=== PATIENT | male | born 1930 | race Caucasian/White ===

== ENCOUNTER 2017-02-22 09:08 | Day surgery (SDC) | payer MEDICARE, BC ==
[2017-02-22] MEDS ORDERED: ETOMIDATE 40 MG/20 ML VIAL IV ONE (10:38)
[2017-02-22] MEDS ORDERED: GLYCOPYRROLATE 0.2 MG/ML VIAL ONE (10:38)
== END 2017-02-22 11:40 | disposition home or self-care (01) ==
LOC: SDS 09:08 → GI 09:08 → SDS 11:40
PROVIDERS: ATTEND Internal Medicine Cardiovascular Disease
DX: I48.2 Chronic atrial fibrillation (principal); I10 Essential (primary) hypertension; I25.10 Atherosclerotic heart disease of native coronary artery without angina pectoris; E78.2 Mixed hyperlipidemia; Z79.899 Other long term (current) drug therapy
CPT/HCPCS: 1922; 93312; 93321; 93325

== ENCOUNTER 2017-03-24 10:42 | Inpatient (IN) | payer MEDICARE, BC ==
[2017-03-24 10:59] LABS: BASOPHILS 0.3 % (0.0-2.0); EOSINOPHILS 0.1 % (0.0-6.0); HEMATOCRIT 47.5 % (42.0-54.0); HEMOGLOBIN 16.3 g/dL (14.0-18.0); LYMPHOCYTES 22.9 % (20.0-40.0); LYMPHOCYTES# 1.4 X 10^3uL (0.8-3.8); MEAN CELL VOLUME 95.3 fL (80.0-100.0); MEAN CORPUS. HGB CONCENTRATION 34.3 g/dL (32.0-36.0); MEAN CORPUSCULAR HEMOGLOBIN 32.7 pg (29.0-35.0); MEAN PLATELET VOLUME 8.9 fL (7.4-10.4); MONOCYTES 12.6 % (2.0-10.0); MONOCYTES# 0.8 X 10^3uL (0.2-1.0); NEUTROPHILS 64.1 % (54.0-75.0); NEUTROPHILS# 4.1 X 10^3uL (2.6-6.7); PLATELET COUNT 124 X 10^3uL (130-440); RED BLOOD COUNT 4.98 X 10^6uL (4.20-6.10); RED CELL DISTRIBUTION WIDTH 12.3 % (11.5-14.5); WHITE BLOOD COUNT 6.3 X 10^3uL (3.9-10.7)
[2017-03-24 11:09] LABS: BLOOD UREA NITROGEN 11 mg/dL (9-20); CALCIUM 8.6 mg/dL (8.4-10.2); CHLORIDE 102 mmol/L (98-107); GLUCOSE 103 mg/dL (70-100); POTASSIUM 4.1 mmol/L (3.5-5.1); SODIUM 138 mmol/L (137-145)
--- NOTE | 2017-03-24 11:19 | CT REPORT ---
HISTORY: Low back pain. Fall. COMPARISON: 11/03/2016 TECHNIQUE: This examination was performed using automated exposure control, adjustment of mA or kV according to patient size, and/or use of iterative reconstruction technique. Axial thin section images were obtai gina from L1 through S1 levels, with sagittal and coronal reformations. FINDINGS: Transitional anatomy is present. S1 is partially lumbarized with a rudimentary disc at S1-S2. Chronic superior endplate compression fracture at T12 with approximately 50% ventral height loss and no retropulsion. The fracture has undergone interval healing since prior examination. There is diffus e sclerosis throughout the vertebral body. Subtle superior end plate deformities at L1, L2 and L3 appear similar to the prior study. Multilevel degenerative disc height loss most notable at L5-S1. Associated discogenic endplate sclero sis. The left iliac bone is heterogeneous in mineralization appears mildly expanded suggesting Paget disea se. IMPRESSION: 1. Chronic T12 superior endplate compression fracture. The presence of diffuse sclerosis in the T12 v ertebral body is favored to reflect fracture healing although a sclerotic tumor could have similar fe atures. Attention on follow-up recommended. 2. No evidence of acute lumbar fracture. MRI would be more sensitive for subtle nondisplaced compress ion fracture. 3. 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 Final Electronic Signature: This report was electronically signed by Mal Subramanian MD on 03/24/2017 11:17 AM. daya /
[2017-03-24 11:21] LABS: TROPONIN I < 0.012 ng/mL (0.00-0.034)
[2017-03-24] MEDS ORDERED: HOME MEDICATION LIST NEEDED 1 EA EACH MC ONE (11:47)
--- NOTE | 2017-03-24 12:45 | ER PHYSICIAN DOCUMENTATION ---
Physician Documentation [facility] Name:Deni Hagen Age:87 yrs Sex:Male :1930 Arrival Date:03/24/2017 Time:10:36 Bed4 Private MD:Carlos Alberto Guerra ED, [place] Disposition: 03/24/17 11:53 Admit ordered for Carlos Alberto Guerra. Preliminary diagnosis are Back Injury, Atrial Fibrillation. - Bed requested for Medical/Surgical. - Condition is Serious. - Problem is new. - Symptoms are unchanged. 23 HR OBS No HPI: 03/24 10:52 This 87 yrs old Male presents to ER via EMS with complaints of Back Injury. sc 10:52 The patient presents with pain that is acute, and an injury. The symptoms are located sc in the low back. Onset: The symptoms/episode began/occurred at 06:00. The pain does not radiate. Associated signs and symptoms: Pertinent positives: none. The problem was sustained at home, from a chronic condition, during a fall, frequent falls over past six months, previously injured low back with compression fx. Historical: - Allergies: No known drug Allergies; - Home Meds: 1. Metoprolol Tartrate Oral 2. Toviaz oral 3. Levothroid Oral 4. aspirin 81 mg oral tab 5. Ferrous Sulfate Oral 6. Lipitor Oral 7. finasteride oral 8. tamsulosin oral - PMHx: CAD; HYPERTENSION; hyperlipidemia; ATRIAL FIB; - PSHx: stent; - Tetanus: unknown. - Ebola Screening: : Patient denies exposure to infectious person. Patient denies travel to an Ebola-affected area in the 21 days before illness onset. . - Social history: Smoking status: unknown if patient ever smoked tobacco. ROS: 10:54 Constitutional: Negative for fever, chills, and weight loss. sc Eyes: Negative for injury, pain, redness, and discharge. Neck: Negative for injury, pain, and swelling. Cardiovascular: Negative for chest pain, palpitations, and edema. Respiratory: Negative for shortness of breath, cough, wheezing, and pleuritic chest pain. Abdomen/GI: Negative for abdominal pain, nausea, vomiting, diarrhea, and constipation. MS/Extremity: Negative for injury and deformity. Skin: Negative for injury, rash, and discoloration. 10:54 Neuro: Negative for headache, weakness, numbness, tingling, and seizure. sc 10:54 Back: Positive for injury or acute deformity. Exam: Constitutional: This is a well developed, well nourished patient who is awake, alert, and in no acute distress. Head/Face: Normocephalic, atraumatic. Eyes: Pupils equal round and reactive to light, extra-ocular motions intact. Lids and lashes normal. Conjunctiva and sclera are non-icteric and not injected. Cornea within normal limits. Periorbital areas with no swelling, redness, or edema. Neck: Trachea midline, no thyromegaly or masses palpated, and no cervical lymphadenopathy. Supple, full range of motion without nuchal rigidity, or vertebral point tenderness. No meningismus. Chest/axilla: Normal chest wall appearance and motion. Nontender with no deformity. No lesions are appreciated. Cardiovascular: Regular rate and rhythm with a normal S1 and S2. No gallops, murmurs, or rubs. Normal PMI, no JVD. No pulse deficits. Respiratory: Lungs have equal breath sounds bilaterally, clear to auscultation and percussion. No rales, rhonchi or wheezes noted. No increased work of breathing, no retractions or nasal flaring. Abdomen/GI: Soft, non-tender, with normal bowel sounds. No distension or tympany. No guarding or rebound. No evidence of tenderness throughout. 10:54 Skin: Warm, dry with normal turgor. Normal color with no rashes, no lesions, and no sc evidence of cellulitis. 10:54 Back: pain, that is moderate, ROM is painful, normal spinal alignment noted, CVA tenderness, is absent, vertebral tenderness, is not appreciated, muscle spasm, is not present, Straight leg raises: pain bilaterally. Vital Signs: 10:38 BP 166 / 75 LA Supine (auto/reg); Pulse 48 RA; Resp 18 S; Temp 98.1(O); Pulse Ox 90% on em3 R/A; Weight 61.23 kg (R); Height 5 ft. 11 in. (180.34 cm) (R); Pain 0/10; 11:54 Pulse 51 MON; Resp 17; Pulse Ox 94% ; st 11:58 BP 163 / 79; st 10:38 Body Mass Index 18.83 (61.23 kg, 180.34 cm) em3 MDM: 10:47 Patient medically screened. ok 10:55 Differential diagnosis: Fracture ruptured disc. Data reviewed: vital signs, nurses ok notes, radiologic studies, and as a result, I will admit patient. Counseling: I had a detailed discussion with the patient and/or guardian regarding: the historical points, exam findings, and any diagnostic results supporting the discharge/admit diagnosis, lab results, radiology results, the need for further work-up and treatment in the hospital. 11:23 ECG:. ok 11:25 EKG attached [facility] 03/24 11:22 Order name: BASIC METABOLIC PANEL [facility] 03/24 11:23 Interpretation: Normal. ok 03/24 11:22 Order name: TROPONIN I [facility] 03/24 11:23 Interpretation: Normal. ok 03/24 11:24 Order name: CBC AUTO DIF, MDIF/RMOR IF IND [facility] 03/24 14:48 Order name: UA W/O MICRO - DENICE, CUL IF IND [facility] 03/24 11:21 Order name: CAT SCAN; LUMBAR W/O CON [id number]; Complete Time: 11:23 [facility] 03/24 11:22 Interpretation: Abnormal. ok 03/24 10:47 Order name: Call For Old Ekg; Complete Time: 10:52 ok 03/24 10:47 Order name: 12-lead EKG; Complete Time: 11:11 ok 03/24 10:47 Order name: Continuous Cardiac Monitoring; Complete Time: 10:52 ok 03/24 10:47 Order name: I & O; Complete Time: 10:52 ok 03/24 10:47 Order name: NPO; Complete Time: 10:52 ok 03/24 10:47 Order name: Pulse Ox Continuous; Complete Time: 10:52 ok 03/24 11:52 Order name: Urine Dip; Complete Time: 12:23 ok EC:23 Rate is 49 beats/min. Rhythm is irregularly irregular, A fib. QRS [place] is Normal. QRS sc interval is normal. QT interval is normal. No Q waves. No ST changes noted. Clinical impression: Atrial Fibrillation. Interpreted by me. Reviewed by me. Dispensed Medications: 11:56 Drug: NS 0.9% 500 ml; Route: IV; Rate: bolus; Site: right antecubital; st 12:44 Follow up: IV Status: Infusion continued upon admission Point of Care Testing: Urine Dip: 12:17 pH: 7.0; ; Specific [place]: 1.020; Ketones: Negative; Glucose: Negative; Protein: em3 Negative; Leukocytes: Negative; Nitrite: Negative ; Blood: Non Hemolyzed Trace; Bilirubin: Negative ; Urobilinogen: Normal Signatures: Laney Meza RN RN Fatmata Ramey RN RN sc1 Moustapha Jaquez MD MD ok
--- NOTE | 2017-03-24 12:45 | ER NURSING DOCUMENTATION ---
Nurse's Notes [facility] Name:Deni Hagen Age:87 yrs Sex:Male :1930 Arrival Date:03/24/2017 Time:10:36 Bed4 Private MD:Carlos Alberto Guerra Diagnosis:Back Injury;Atrial Fibrillation Presentation: 03/24 10:40 Acuity: SILVIA 3 st 10:40 Presenting complaint: Patient states: at 6 this AM pt fell while walking from the restroom. (pt does not remember the event. Ilir Gonzalez's staff helped him up and gave him some ensure but he continued to have back pain so they called 911. Transition of care: Christopher Shah. Care prior to arrival: IV initiated. 10:40 Method Of Arrival: EMS: 410 st 11:59 Care prior to arrival: Glucose check. 108. st Triage Assessment: 10:45 General: Appears uncomfortable, Behavior is cooperative. Pain: Complains of pain in st lumbar area Pain currently is 0 out of 10 on a pain scale. Pain began 4 hours ago Aggravated by movement. pt has no pain unless he moves. Neuro: Level of Consciousness is awake, alert, Oriented to person, place, time, Jacquard Lace Weaver are equal bilaterally Moves all extremities. Reports back pain with any movment.. Musculoskeletal: Circulation, motion, and sensation intact no tenderness noted with palpatio. Historical: - Allergies: No known drug Allergies; - Home Meds: 1. Metoprolol Tartrate Oral 2. Toviaz oral 3. Levothroid Oral 4. aspirin 81 mg oral tab 5. Ferrous Sulfate Oral 6. Lipitor Oral 7. finasteride oral 8. tamsulosin oral - PMHx: CAD; HYPERTENSION; hyperlipidemia; ATRIAL FIB; - PSHx: stent; - Tetanus: unknown. - Ebola Screening: : Patient denies exposure to infectious person. Patient denies travel to an Ebola-affected area in the 21 days before illness onset. . - Social history: Smoking status: unknown if patient ever smoked tobacco. Screenin:47 Infectious Disease Risk None. Abuse screen: no reasons for suspicions noted. st Nutritional screening: No deficits noted. Assessment: 11:22 General: pt resting quietly. pt has no pain at this time.. st Vital Signs: 10:38 BP 166 / 75 LA Supine (auto/reg); Pulse 48 RA; Resp 18 S; Temp 98.1(O); Pulse Ox 90% on em3 R/A; Weight 61.23 kg (R); Height 5 ft. 11 in. (180.34 cm) (R); Pain 0/10; 11:54 Pulse 51 MON; Resp 17; Pulse Ox 94% ; st 11:58 BP 163 / 79; st 10:38 Body Mass Index 18.83 (61.23 kg, 180.34 cm) em3 ED Course: 10:36 Patient arrived in ED. em3 10:38 Carlos Alberto Guerra MD is Private Physician. em3 10:40 Laney Meza RN is Primary Nurse. st 10:[address] 10:40 Valuables Remains with patient Patient has correct armband on for positive em3 identification. Bed in low position. Call light in reach. Side rails up X2. 10:47 Moustapha Jaquez MD is Attending Physician. sc 10:51 awake overnight monitor on. Pulse ox on. NIBP on. st 10:[address] hz 11:02 Patient moved back from CT. hz 11:04 EKG done per protocol. Performed by ED Staff. Shown to ED physician. st 11:[address] 11:25 EKG attached sc1 11:53 Carlos Alberto Guerra MD is Admitting Physician. sc 12:[address] Administered Medications: 11:56 Drug: NS 0.9% 500 ml; Route: IV; Rate: bolus; Site: right antecubital; st 12:44 Follow up: IV Status: Infusion continued upon admission Point of Care Testing: Urine Dip: 12:17 pH: 7.0; ; Specific [place]: 1.020; Ketones: Negative; Glucose: Negative; Protein: em3 Negative; Leukocytes: Negative; Nitrite: Negative ; Blood: Non Hemolyzed Trace; Bilirubin: Negative ; Urobilinogen: Normal Outcome: 11:53 Decision to Admit by Provider. ca 12:43 Admitted to Med/surg accompanied by nurse. st 12:43 Condition: stable 12:43 Report given to Nic 12:43 Instructed on need to admit 12:44 Patient [address] the ED[address] st Signatures: Laney Meza RN RN Fatmata Ramey RN RN ca1 Moustapha Jaquez MD MD sc Pavan hSort em3 Araceli Lewis
[2017-03-24] MEDS ORDERED: ENOXAPARIN SODIUM 100 MG/ML SYR SUBCUT SCH (13:00)
[2017-03-24] MEDS: LISINOPRIL 20 MG TABLET PO SCH (14:09)
[2017-03-24] MEDS: ENOXAPARIN SODIUM 60 MG/0.6 ML SYR SUBCUT SCH (14:13)
[2017-03-24] MEDS ORDERED: ENOXAPARIN SODIUM 60 MG/0.6 ML SYR SUBCUT ONE (14:21)
[2017-03-24 14:47] LABS: URINE APPEARANCE CLEAR; URINE BILIRUBIN NEGATIVE (NEGATIVE); URINE BLOOD TRACE (NEGATIVE); URINE COLOR YELLOW; URINE GLUCOSE NORMAL (NEGATIVE); URINE KETONE NEGATIVE (NEGATIVE); URINE LEUKOCYTE ESTERASE NEGATIVE (NEGATIVE); URINE NITRITE NEGATIVE (NEGATIVE); URINE PROTEIN NEGATIVE (NEG - TRACE); URINE SPECIFIC GRAVITY 1.015 (0.001-1.035); URINE UROBILINOGEN 0.2mg/dL (Normal) (NEG-1mg/dL)
--- NOTE | 2017-03-24 16:10 | HISTORY & PHYSICAL ---
DATE OF ADMISSION: 03/24/17 CHIEF COMPLAINT: Status post fall. HISTORY OF PRESENT ILLNESS: This is an 87-year-old male who had some falls 6 months ago and again about 3 months ago. This morning, the patient had another fall, sitting down. No head or neck injury. Apparently he was scheduled for placement of a Watchman closure device, and he was n.p.o. since about 12 noon yesterday. He has a poor p.o. fluid intake normally and only eats lunch, no breakfast or dinner normally. Apparently this morning he felt quite dizzy and lightheaded and had an unwitnessed fall. He is complaining of low back pain. Lumbar spine CT scan showed an old compression fracture at T12, but no obvious new acute compression fracture or other injuries. ALLERGIES: None. MEDICATIONS Levothyroxine 50 mcg p.o. q.day. Metoprolol ER 25 mg p.o. q.day. Finasteride 5 mg p.o. q.day. Toviaz ER 8 mg p.o. q.day. Atorvastatin 20 mg p.o. q.h.s. Tamsulosin 0.4 mg p.o. q.day. Hydrocodone/APAP 5/325 mg one tablet p.o. q.6h p.r.n. pain. Calcium 600 mg with vitamin D 400 IU p.o. b.i.d. Tylenol p.r.n. Aspirin 81 mg p.o. q.day. Ferrous sulfate 325 mg p.o. q.day. Nitroglycerin 0.4 mg sublingual q.5 minutes p.r.n. chest pain. Coumadin has been discontinued in the past. PAST MEDICAL HISTORY 1. Atrial fibrillation followed by hydrant setter Dr. Miner and previously on Coumadin but currently on aspirin. He is scheduled for a Watchman closure device today but this will need to be rescheduled for a future date. 2. Hyperlipidemia. 3. Hypothyroidism. 4. B12 compression fracture in 2015. 5. Hematuria. 6. Urinary retention. 7. BPH. 8. CAD status post angioplasty and stent of the LAD followed by Dr. Miner. 9. Osteoporosis. 10. Iron deficiency anemia. 11. Gait instability with fall risk. 12. Rib fracture 09/2016. 13. Right hand metacarpal fracture in 11/2016. 14. Hematoma of the scrotum 09/2016. 15. Hypertension. 16. Cataract surgery, bilateral, in 2009 and laser surgery of the left eye in 2016. SOCIAL HISTORY: . No alcohol. No smoking. FAMILY HISTORY: Unremarkable. REVIEW OF SYSTEMS: No chest pain, chest tightness, palpitations or angina symptoms. No lung, kidney, liver, diabetes, seizures, peptic ulcer disease or skin allergy disorder. No urinary problems. PREVENTATIVE HEALTH: Gets annual flu shot. PHYSICAL EXAMINATION VITAL SIGNS: Blood pressure 166/75, pulse 48, respiratory rate 18, temperature 98.0, pulse oximetry 90% on room air. GENERAL: Well-developed, well-nourished elderly male, no acute distress, alert and oriented times 3. HEENT: Head atraumatic, normocephalic. EOMI. Pupils equally round. Normal conjunctivae. No coryza. Pharynx not injected. NECK: No adenopathy, thyromegaly or bruits. Supple. CHEST: Clear. No rales, rhonchi or wheezes. Good breath sounds and symmetry throughout. COR: Irregular irregular rhythm, bradycardic. No obvious murmurs, rubs or clicks. No jugular venous distention. ABDOMEN: Soft, nontender. No hepatosplenomegaly. No masses. No bruits. Bowel sounds present. LOWER EXTREMITIES: No edema. Posterior tibialis pulses present. NEUROLOGIC: Cranial nerves 2-12 intact. Motor 5/5 in the upper and lower extremities. Sensory intact in upper and lower extremities. DTRS 1+ on patellar reflexes. Cerebellar function: Normal finger to nose. BACK: No lumbar spine, SI joint or tenderness. No obvious muscle tenderness. Pain occurs primarily when the patient does any kind of movement with the back. The patient prefers to lie down and at any time tries to sit up causes exquisite pain. CT SCAN: Showed an old T12 compression fracture but no acute injury. LABORATORY STUDIES: WBC 6.3, H&H 16.3/47.5, platelets 124,000. Sodium 138, potassium 4.1, chloride 100, CO2 25, BUN 11, creatinine 0.8, glucose 103, calcium 8.6. Troponin less than 0.012. Urinalysis pending. ASSESSMENT 1. Status post fall. 2. Intractable pain with low back pain secondary to number 1 most likely etiology for the fall would be dehydration from being n.p.o. since 12 noon yesterday. In addition, he only has fair fluid intake. 3. Bradycardia, chronic, presumably due to metoprolol. Will need to consider holding metoprolol if bradycardia remains profound and persistent. 4. Atrial fibrillation, currently on aspirin. Not a good candidate for warfarin due to fall risk and was to have a Watchman closure procedure done today, and this will need to be rescheduled. 5. CAD. 6. Hypertension. 7. Hyperlipidemia. PLAN 1. Physical therapy and occupational therapy. 2. Up in chair t.i.d. and ambulate t.i.d. 3. Will need to reschedule Watchman closure procedure. 4. Lovenox while in the hospital. 5. Will need to consider stopping metoprolol if the patient has profound bradycardic. ADDENDUM: Since the patient has been here in the hospital, heart rates have been in the 30-40 range with blood pressure in the 180s. PLAN 1. Start Lisinopril 20 mg p.o. q.day. 2. Hold metoprolol ER 25 mg p.o. q.day. 3. Cardiology consultation. Copy to Dr. Kristofer ARROYO
[2017-03-24] MEDS: traMADol HCL 50 MG TABLET PO PRN (17:37)
[2017-03-24] MEDS: CARBAMIDE PEROXIDE 6.5% OTIC 75 DROP/5 ML BTL EACH EAR SCH (18:43)
[2017-03-24] MEDS ORDERED: CARBAMIDE PEROXIDE 6.5% OTIC 75 DROP/5 ML BTL ONE (18:53)
[2017-03-24] MEDS: TAMSULOSIN HCL 0.4 MG CAPSULE PO SCH (20:55)
[2017-03-24] MEDS: ATORVASTATIN CALCIUM 10 MG TABLET PO SCH (20:55)
[2017-03-24] MEDS: FINASTERIDE 5 MG TABLET PO SCH (20:55)
[2017-03-24] MEDS: CALCIUM/VIT D 600 MG/400 IU 1 TAB TABLET PO SCH (20:55)
[2017-03-25] MEDS: LEVOTHYROXINE 50 MCG TABLET PO SCH (06:05)
[2017-03-25] MEDS: traMADol HCL 50 MG TABLET PO PRN ×2 (08:10→22:33)
[2017-03-25] MEDS ORDERED: ENOXAPARIN SODIUM 60 MG/0.6 ML SYR SUBCUT SCH (09:00)
--- NOTE | 2017-03-25 09:03 | PROGRESS NOTE: IM SOAP ---
IM: PN Subjective Interval history: Bilat otalgia related to bilat cerumen impaction. Nursing on working to get ears flushed. Persistent severe LBP with any movement. Unable to stand up or ambulate yet. No CP, SOB, dizziness. Metoprolol was held and pt started on lisinopril yesterday due to HR 30-40, BP 180/systolic. IM: PN Objective Exam - I&O/Vital Signs I&O: Intake & Output 03/24/17 03/25/17 03/25/17 21:59 05:59 13:59 Intake Total 220 Output Total 650 100 Balance -430 -100 Weight 62.5 kg Intake: Oral 220 Output: Urine 650 100 Other: Urine Appearance Clear Clear Urine Color Straw Yellow Voiding Method Urinal Urinal # Voids 1 Vital Signs: Last Vital Signs Temp 37.0 C 03/25/17 07:00 Pulse 54 L 03/25/17 07:00 Resp 20 03/25/17 07:00 BP 152/61 03/25/17 07:00 Pulse Ox 95 03/25/17 07:00 Oxygen Flow Rate 1 Oxygen Delivery Method Nasal Cannula - Respiratory Respiratory exam: Present: clear - Cardiovascular Cardiovascular exam: Present: irregular rhythm. Absent: systolic murmur - GI/Abdominal GI/Abdominal exam: Present: soft. Absent: tenderness - Extremities Exam Extremities exam: Absent: calf tenderness, edema - Back Exam Back exam: Present: normal inspection (but minor movement of back caused severe pain). Absent: muscle spasm, paraspinal tenderness - Lab Labs: Laboratory Last Values WBC 6.3 X 10^3uL (3.9-10.7) 03/24/17 10:30 RBC 4.98 X 10^6uL (4.20-6.10) 03/24/17 10:30 Hgb 16.3 g/dL (14.0-18.0) 03/24/17 10:30 Hct 47.5 % (42.0-54.0) 03/24/17 10:30 MCV 95.3 fL (80.0-100.0) 03/24/17 10:30 MCH 32.7 pg (29.0-35.0) 03/24/17 10:30 MCHC 34.3 g/dL (32.0-36.0) 03/24/17 10:30 RDW 12.3 % (11.5-14.5) 03/24/17 10:30 Plt Count 124 X 10^3uL (130-440) L 03/24/17 10:30 MPV 8.9 fL (7.4-10.4) 03/24/17 10:30 Neutrophils % 64.1 % (54.0-75.0) 03/24/17 10:30 Lymphocytes % 22.9 % (20.0-40.0) 03/24/17 10:30 Eosinophils % 0.1 % (0.0-6.0) 03/24/17 10:30 Basophils % 0.3 % (0.0-2.0) 03/24/17 10:30 Neutrophils # 4.1 X 10^3uL (2.6-6.7) 03/24/17 10:30 Lymphocytes # 1.4 X 10^3uL (0.8-3.8) 03/24/17 10:30 Monocytes 12.6 % (2.0-10.0) H 03/24/17 10:30 Monocytes # 0.8 X 10^3uL (0.2-1.0) 03/24/17 10:30 Eosinophils # 0.0 X 10^3uL (0.0-0.4) 03/24/17 10:30 Basophils # 0.0 X 10^3uL (0.0-0.1) 03/24/17 10:30 Sodium 138 mmol/L (137-145) 03/24/17 10:30 Potassium 4.1 mmol/L (3.5-5.1) 03/24/17 10:30 Chloride 102 mmol/L (98-107) 03/24/17 10:30 Carbon Dioxide 25 mmol/L (22-30) 03/24/17 10:30 BUN 11 mg/dL (9-20) 03/24/17 10:30 Creatinine 0.8 mg/dL (0.7-1.3) 03/24/17 10:30 GFR Calculation Not Reportable 03/24/17 10:30 Glucose 103 mg/dL (70-100) H 03/24/17 10:30 Calcium 8.6 mg/dL (8.4-10.2) 03/24/17 10:30 Troponin I < 0.012 ng/mL (0.00-0.034) 03/24/17 10:30 Urine Color Yellow 03/24/17 13:30 Urine Appearance Clear 03/24/17 13:30 Urine pH 7.0 (5-7) 03/24/17 13:30 Ur Specific [place] 1.015 (0.001-1.035) 03/24/17 13:30 Urine Protein Negative (NEG - TRACE) 03/24/17 13:30 Urine Ketones Negative (NEGATIVE) 03/24/17 13:30 Urine Blood Trace (NEGATIVE) A 03/24/17 13:30 Urine Nitrate Negative (NEGATIVE) 03/24/17 13:30 Urine Bilirubin Negative (NEGATIVE) 03/24/17 13:30 Urine Urobilinogen 0.2mg/dl (normal) (NEG-1mg/dL) 03/24/17 13:30 Ur Leukocyte Esterase Negative (NEGATIVE) 03/24/17 13:30 Urine Glucose Normal (NEGATIVE) 03/24/17 13:30 Assessment and Plan - Date of Encounter Date of Encounter: 03/25/17 (1) Fall Status: Acute Current Visit: Yes (2) Intractable pain Status: Acute Current Visit: Yes (3) Low back pain Status: Acute Assessment and plan: PT/OT Tramadol Current Visit: Yes (4) Bradycardia Status: Acute Assessment and plan: Improved to HR 50 when metoprolol stopped Cardiology consult Current Visit: Yes (5) HTN (hypertension) Status: Acute Assessment and plan: Switched from metoprolol to lisinopril Current Visit: Yes (6) Hyperlipidemia Status: Chronic Current Visit: Yes (7) Atrial fibrillation Status: Chronic Assessment and plan: Reschedule Watchman procedure Currently on ASA and inpatient Lovenox Current Visit: No (8) Coronary artery disease Status: Chronic Current Visit: No - Time Spent With Patient Total time spent with greater than 50% in coordination of care (as documented) at patient's floor/unit and/or counseling patient: Quality Questions - VTE Prophylaxis Assessment VTE Present on Admission?: No Patient at risk for venous thromboembolism?: Yes VTE Risk Level: High Risk Pharmaceutical VTE prophylaxis contraindication reason: N/A- VTE prophylaxsis ordered Mechanical VTE prophylaxis contraindication reason: N/A- VTE prophylaxsis ordered (7) Atrial fibrillation Qualifiers:
[2017-03-25] MEDS: CALCIUM/VIT D 600 MG/400 IU 1 TAB TABLET PO SCH ×2 (10:31→22:17)
[2017-03-25] MEDS: ACETAMINOPHEN 325 MG TABLET PO PRN ×2 (10:32→16:49)
[2017-03-25] MEDS: FERROUS SULFATE 325 MG TABLET PO SCH (10:32)
[2017-03-25] MEDS: CARBAMIDE PEROXIDE 6.5% OTIC 75 DROP/5 ML BTL EACH EAR SCH (10:32)
[2017-03-25] MEDS: LISINOPRIL 20 MG TABLET PO SCH (10:33)
[2017-03-25] MEDS: metoprolol SUCC ER 25 MG TABLET PO SCH (10:33)
[2017-03-25] MEDS: FESOTERODINE FUMARATE 8 MG PO SCH (10:34)
[2017-03-25] MEDS: ENOXAPARIN SODIUM 60 MG/0.6 ML SYR SUBCUT SCH (10:34)
[2017-03-25] MEDS: ATORVASTATIN CALCIUM 10 MG TABLET PO SCH (22:17)
[2017-03-25] MEDS: FINASTERIDE 5 MG TABLET PO SCH (22:18)
[2017-03-25] MEDS: TAMSULOSIN HCL 0.4 MG CAPSULE PO SCH (22:18)
[2017-03-26] MEDS: LEVOTHYROXINE 50 MCG TABLET PO SCH (06:31)
[2017-03-26] MEDS: ACETAMINOPHEN 325 MG TABLET PO PRN ×2 (06:32→20:30)
[2017-03-26] MEDS ORDERED: MAGNESIUM HYDROXIDE 30 ML UDC PO SCH (06:41)
[2017-03-26] MEDS: LISINOPRIL 20 MG TABLET PO SCH ×2 (08:23→14:29)
[2017-03-26] MEDS: FERROUS SULFATE 325 MG TABLET PO SCH (08:23)
[2017-03-26] MEDS: CALCIUM/VIT D 600 MG/400 IU 1 TAB TABLET PO SCH ×2 (08:24→20:06)
[2017-03-26] MEDS: FESOTERODINE FUMARATE 8 MG PO SCH (08:25)
[2017-03-26] MEDS: ENOXAPARIN SODIUM 60 MG/0.6 ML SYR SUBCUT SCH (08:25)
[2017-03-26] MEDS: metoprolol SUCC ER 25 MG TABLET PO SCH (08:26)
[2017-03-26] MEDS: CARBAMIDE PEROXIDE 6.5% OTIC 75 DROP/5 ML BTL EACH EAR SCH (09:10)
--- NOTE | 2017-03-26 12:43 | PROGRESS NOTE: IM SOAP ---
IM: PN Subjective Interval history: Bilat otalgia related to bilat cerumen impaction. Nursing on working to get ears flushed. Persistent severe LBP with any movement. Ambulated to window with walker and assist. No CP, SOB, dizziness. Metoprolol was held and pt started on lisinopril yesterday due to HR 30-40, BP 180/systolic. Will need to consider SSS and need for pacemaker. IM: PN Objective Exam - I&O/Vital Signs I&O: Intake & Output 03/25/17 03/26/17 03/26/17 21:59 05:59 13:59 Intake Total 990 100 Output Total 100 175 Balance 890 -75 Weight 64.5 kg Intake: Oral 990 100 Output: Urine 100 175 Other: Urine Appearance Clear Clear Clear Urine Color Yellow Yellow Yellow Voiding Method Urinal Urinal Incontinent # Voids 1 1 Vital Signs: Last Vital Signs Temp 35.9 C L 03/26/17 11:00 Pulse 43 L 03/26/17 11:00 Resp 20 03/26/17 11:00 BP 98/47 03/26/17 11:00 Pulse Ox 92 03/26/17 11:00 Oxygen Flow Rate 0.5 Oxygen Delivery Method Nasal Cannula - Respiratory Respiratory exam: Present: clear - Cardiovascular Cardiovascular exam: Present: irregular rhythm. Absent: systolic murmur - GI/Abdominal GI/Abdominal exam: Present: soft. Absent: tenderness - Extremities Exam Extremities exam: Absent: calf tenderness, edema - Back Exam Back exam: Present: normal inspection (but minor movement of back caused severe pain). Absent: muscle spasm, paraspinal tenderness - Lab Labs: Laboratory Last Values WBC 6.3 X 10^3uL (3.9-10.7) 03/24/17 10:30 RBC 4.98 X 10^6uL (4.20-6.10) 03/24/17 10:30 Hgb 16.3 g/dL (14.0-18.0) 03/24/17 10:30 Hct 47.5 % (42.0-54.0) 03/24/17 10:30 MCV 95.3 fL (80.0-100.0) 03/24/17 10:30 MCH 32.7 pg (29.0-35.0) 03/24/17 10:30 MCHC 34.3 g/dL (32.0-36.0) 03/24/17 10:30 RDW 12.3 % (11.5-14.5) 03/24/17 10:30 Plt Count 124 X 10^3uL (130-440) L 03/24/17 10:30 MPV 8.9 fL (7.4-10.4) 03/24/17 10:30 Neutrophils % 64.1 % (54.0-75.0) 03/24/17 10:30 Lymphocytes % 22.9 % (20.0-40.0) 03/24/17 10:30 Eosinophils % 0.1 % (0.0-6.0) 03/24/17 10:30 Basophils % 0.3 % (0.0-2.0) 03/24/17 10:30 Neutrophils # 4.1 X 10^3uL (2.6-6.7) 03/24/17 10:30 Lymphocytes # 1.4 X 10^3uL (0.8-3.8) 03/24/17 10:30 Monocytes 12.6 % (2.0-10.0) H 03/24/17 10:30 Monocytes # 0.8 X 10^3uL (0.2-1.0) 03/24/17 10:30 Eosinophils # 0.0 X 10^3uL (0.0-0.4) 03/24/17 10:30 Basophils # 0.0 X 10^3uL (0.0-0.1) 03/24/17 10:30 Sodium 138 mmol/L (137-145) 03/24/17 10:30 Potassium 4.1 mmol/L (3.5-5.1) 03/24/17 10:30 Chloride 102 mmol/L (98-107) 03/24/17 10:30 Carbon Dioxide 25 mmol/L (22-30) 03/24/17 10:30 BUN 11 mg/dL (9-20) 03/24/17 10:30 Creatinine 0.8 mg/dL (0.7-1.3) 03/24/17 10:30 GFR Calculation Not Reportable 03/24/17 10:30 Glucose 103 mg/dL (70-100) H 03/24/17 10:30 Calcium 8.6 mg/dL (8.4-10.2) 03/24/17 10:30 Troponin I < 0.012 ng/mL (0.00-0.034) 03/24/17 10:30 Urine Color Yellow 03/24/17 13:30 Urine Appearance Clear 03/24/17 13:30 Urine pH 7.0 (5-7) 03/24/17 13:30 Ur Specific [place] 1.015 (0.001-1.035) 03/24/17 13:30 Urine Protein Negative (NEG - TRACE) 03/24/17 13:30 Urine Ketones Negative (NEGATIVE) 03/24/17 13:30 Urine Blood Trace (NEGATIVE) A 03/24/17 13:30 Urine Nitrate Negative (NEGATIVE) 03/24/17 13:30 Urine Bilirubin Negative (NEGATIVE) 03/24/17 13:30 Urine Urobilinogen 0.2mg/dl (normal) (NEG-1mg/dL) 03/24/17 13:30 Ur Leukocyte Esterase Negative (NEGATIVE) 03/24/17 13:30 Urine Glucose Normal (NEGATIVE) 03/24/17 13:30 Assessment and Plan - Date of Encounter Date of Encounter: 03/26/17 (1) Fall Status: Acute Current Visit: Yes (2) Intractable pain Status: Acute Current Visit: Yes (3) Low back pain Status: Acute Assessment and plan: PT/OT Tramadol Ambulation improving Current Visit: Yes (4) Bradycardia Status: Acute Assessment and plan: Improved to HR 50 when metoprolol stopped Cardiology consult Consider pacemaker for SSS Current Visit: Yes (5) HTN (hypertension) Status: Acute Assessment and plan: Switched from metoprolol to lisinopril BP a bit low today. Decrease lisinopril to 10mg po daily. Current Visit: Yes (6) Hyperlipidemia Status: Chronic Current Visit: Yes (7) Atrial fibrillation Status: Chronic Assessment and plan: Reschedule Watchman procedure Currently on ASA and inpatient Lovenox Current Visit: No (8) Coronary artery disease Status: Chronic Current Visit: No - Time Spent With Patient Total time spent with greater than 50% in coordination of care (as documented) at patient's floor/unit and/or counseling patient: (7) Atrial fibrillation Qualifiers:
[2017-03-26] MEDS: traMADol HCL 50 MG TABLET PO PRN (16:20)
[2017-03-26] MEDS: TAMSULOSIN HCL 0.4 MG CAPSULE PO SCH (20:06)
[2017-03-26] MEDS: FINASTERIDE 5 MG TABLET PO SCH (20:07)
[2017-03-26] MEDS: ATORVASTATIN CALCIUM 10 MG TABLET PO SCH (20:07)
[2017-03-26] MEDS: LIDOCAINE 5% 1 PATCH PATCH TRANSDERM SCH (20:57)
[2017-03-27] MEDS: traMADol HCL 50 MG TABLET PO PRN ×2 (03:00→20:15)
[2017-03-27] MEDS: ACETAMINOPHEN 325 MG TABLET PO PRN ×2 (06:40→13:59)
[2017-03-27] MEDS: LEVOTHYROXINE 50 MCG TABLET PO SCH (06:40)
[2017-03-27] MEDS: FERROUS SULFATE 325 MG TABLET PO SCH (08:51)
[2017-03-27] MEDS: LISINOPRIL 20 MG TABLET PO SCH (08:52)
[2017-03-27] MEDS: CALCIUM/VIT D 600 MG/400 IU 1 TAB TABLET PO SCH ×2 (08:52→20:14)
[2017-03-27] MEDS: ENOXAPARIN SODIUM 60 MG/0.6 ML SYR SUBCUT SCH (08:53)
[2017-03-27] MEDS: REMOVE PATCH 1 PATCH PATCH TRANSDERM SCH (08:54)
[2017-03-27] MEDS: FESOTERODINE FUMARATE 8 MG PO SCH (08:54)
[2017-03-27] MEDS: CARBAMIDE PEROXIDE 6.5% OTIC 75 DROP/5 ML BTL EACH EAR SCH (08:55)
--- NOTE | 2017-03-27 11:51 | PROGRESS NOTE: IM SOAP ---
IM: PN Subjective Interval history: Bilat otalgia related to bilat cerumen impaction. Nursing working to get ears flushed. Persistent severe LBP with any movement. Ambulated to door with walker and assist. Great difficulty getting OOB. No CP, SOB, dizziness. Metoprolol was held and pt started on lisinopril yesterday due to HR 30-40, BP 180/systolic. Lisinopril was lowered from 20mg to 10mg due to hypotension. BP better today, but bradycardia HR 30-45 persists. Will need to consider SSS and need for pacemaker. IM: PN Objective Exam - I&O/Vital Signs I&O: Intake & Output 03/26/17 03/27/17 03/27/17 21:59 05:59 13:59 Intake Total 510 300 250 Output Total 400 325 Balance 110 -25 250 Weight 61 kg Intake: Oral 510 300 250 Output: Urine 400 325 Other: Urine Appearance Clear Clear Clear Urine Color Light [place] Straw Straw Stool Size Moderate Small Stool Characteristics Soft Formed [place] Voiding Method Toilet Toilet Toilet # Voids 4 # Bowel Movements 1 1 Vital Signs: Last Vital Signs Temp 97.5 C H 03/27/17 11:00 Pulse 45 L 03/27/17 11:00 Resp 20 03/27/17 11:00 BP 104/57 03/27/17 11:00 Pulse Ox 92 03/27/17 11:00 Oxygen Flow Rate 1 Oxygen Delivery Method Room Air - ENT ENT exam: Present: other (Persistent bilat cerumen impaction, severe) - Respiratory Respiratory exam: Present: clear - Cardiovascular Cardiovascular exam: Present: bradycardia, irregular rhythm. Absent: systolic murmur - GI/Abdominal GI/Abdominal exam: Present: soft. Absent: tenderness - Extremities Exam Extremities exam: Absent: calf tenderness, edema - Back Exam Back exam: Present: normal inspection (but minor movement of back caused severe pain. Was able to flex forward about 10 degrees before pain recurred.). Absent : muscle spasm, paraspinal tenderness - Lab Labs: Laboratory Last Values WBC 6.3 X 10^3uL (3.9-10.7) 03/24/17 10:30 RBC 4.98 X 10^6uL (4.20-6.10) 03/24/17 10:30 Hgb 16.3 g/dL (14.0-18.0) 03/24/17 10:30 Hct 47.5 % (42.0-54.0) 03/24/17 10:30 MCV 95.3 fL (80.0-100.0) 03/24/17 10:30 MCH 32.7 pg (29.0-35.0) 03/24/17 10:30 MCHC 34.3 g/dL (32.0-36.0) 03/24/17 10:30 RDW 12.3 % (11.5-14.5) 03/24/17 10:30 Plt Count 124 X 10^3uL (130-440) L 03/24/17 10:30 MPV 8.9 fL (7.4-10.4) 03/24/17 10:30 Neutrophils % 64.1 % (54.0-75.0) 03/24/17 10:30 Lymphocytes % 22.9 % (20.0-40.0) 03/24/17 10:30 Eosinophils % 0.1 % (0.0-6.0) 03/24/17 10:30 Basophils % 0.3 % (0.0-2.0) 03/24/17 10:30 Neutrophils # 4.1 X 10^3uL (2.6-6.7) 03/24/17 10:30 Lymphocytes # 1.4 X 10^3uL (0.8-3.8) 03/24/17 10:30 Monocytes 12.6 % (2.0-10.0) H 03/24/17 10:30 Monocytes # 0.8 X 10^3uL (0.2-1.0) 03/24/17 10:30 Eosinophils # 0.0 X 10^3uL (0.0-0.4) 03/24/17 10:30 Basophils # 0.0 X 10^3uL (0.0-0.1) 03/24/17 10:30 Sodium 138 mmol/L (137-145) 03/24/17 10:30 Potassium 4.1 mmol/L (3.5-5.1) 03/24/17 10:30 Chloride 102 mmol/L (98-107) 03/24/17 10:30 Carbon Dioxide 25 mmol/L (22-30) 03/24/17 10:30 BUN 11 mg/dL (9-20) 03/24/17 10:30 Creatinine 0.8 mg/dL (0.7-1.3) 03/24/17 10:30 GFR Calculation Not Reportable 03/24/17 10:30 Glucose 103 mg/dL (70-100) H 03/24/17 10:30 Calcium 8.6 mg/dL (8.4-10.2) 03/24/17 10:30 Troponin I < 0.012 ng/mL (0.00-0.034) 03/24/17 10:30 Urine Color Yellow 03/24/17 13:30 Urine Appearance Clear 03/24/17 13:30 Urine pH 7.0 (5-7) 03/24/17 13:30 Ur Specific [place] 1.015 (0.001-1.035) 03/24/17 13:30 Urine Protein Negative (NEG - TRACE) 03/24/17 13:30 Urine Ketones Negative (NEGATIVE) 03/24/17 13:30 Urine Blood Trace (NEGATIVE) A 03/24/17 13:30 Urine Nitrate Negative (NEGATIVE) 03/24/17 13:30 Urine Bilirubin Negative (NEGATIVE) 03/24/17 13:30 Urine Urobilinogen 0.2mg/dl (normal) (NEG-1mg/dL) 03/24/17 13:30 Ur Leukocyte Esterase Negative (NEGATIVE) 03/24/17 13:30 Urine Glucose Normal (NEGATIVE) 03/24/17 13:30 Assessment and Plan - Date of Encounter Date of Encounter: 03/27/17 (1) Fall Status: Acute Current Visit: Yes (2) Intractable pain Status: Acute Assessment and plan: Persistent Current Visit: Yes (3) Low back pain Status: Acute Assessment and plan: PT/OT Tramadol Ambulation improving Consider MRI Current Visit: Yes (4) Bradycardia Status: Acute Assessment and plan: HR 30-45 persistent despite stopping metoprolol Cardiology consult Consider pacemaker for SSS Current Visit: Yes (5) HTN (hypertension) Status: Acute Assessment and plan: Switched from metoprolol to lisinopril Lisinopril 10mg po daily. Current Visit: Yes (6) Hyperlipidemia Status: Chronic Current Visit: Yes (7) Atrial fibrillation Status: Chronic Assessment and plan: Reschedule Watchman procedure Currently on ASA and inpatient Lovenox Current Visit: No (8) Coronary artery disease Status: Chronic Current Visit: No (9) Impacted cerumen of both ears Status: Acute Assessment and plan: Debrox, Ear canal irrigation bilat Current Visit: Yes - Time Spent With Patient Total time spent with greater than 50% in coordination of care (as documented) at patient's floor/unit and/or counseling patient: (7) Atrial fibrillation Qualifiers:
[2017-03-27] MEDS: TAMSULOSIN HCL 0.4 MG CAPSULE PO SCH (20:15)
[2017-03-27] MEDS: LIDOCAINE 5% 1 PATCH PATCH TRANSDERM SCH (20:15)
[2017-03-27] MEDS: FINASTERIDE 5 MG TABLET PO SCH (20:15)
[2017-03-27] MEDS: ATORVASTATIN CALCIUM 10 MG TABLET PO SCH (20:15)
[2017-03-28] MEDS: traMADol HCL 50 MG TABLET PO PRN (03:30)
[2017-03-28] MEDS: ACETAMINOPHEN 325 MG TABLET PO PRN (06:38)
[2017-03-28] MEDS: LEVOTHYROXINE 50 MCG TABLET PO SCH (06:38)
[2017-03-28 06:49] LABS: BASOPHILS 0.5 % (0.0-2.0); EOSINOPHILS 0.3 % (0.0-6.0); HEMATOCRIT 43.6 % (42.0-54.0); HEMOGLOBIN 14.7 g/dL (14.0-18.0); LYMPHOCYTES 28.5 % (20.0-40.0); LYMPHOCYTES# 1.4 X 10^3uL (0.8-3.8); MEAN CELL VOLUME 94.4 fL (80.0-100.0); MEAN CORPUS. HGB CONCENTRATION 33.6 g/dL (32.0-36.0); MEAN CORPUSCULAR HEMOGLOBIN 31.7 pg (29.0-35.0); MEAN PLATELET VOLUME 8.8 fL (7.4-10.4); MONOCYTES 12.4 % (2.0-10.0); MONOCYTES# 0.6 X 10^3uL (0.2-1.0); NEUTROPHILS 58.3 % (54.0-75.0); NEUTROPHILS# 2.8 X 10^3uL (2.6-6.7); PLATELET COUNT 100 X 10^3uL (130-440); RED BLOOD COUNT 4.62 X 10^6uL (4.20-6.10); RED CELL DISTRIBUTION WIDTH 12.5 % (11.5-14.5); WHITE BLOOD COUNT 4.8 X 10^3uL (3.9-10.7)
[2017-03-28 06:54] LABS: A/G RATIO 1.1; ALBUMIN 3.4 g/dL (3.5-5.0); ALKALINE PHOSPHATASE 42 U/L (38-126); ALT 37 U/L (21-72); AST 24 U/L (17-59); BILIRUBIN, TOTAL 1.1 mg/dL (0.2-1.3); BLOOD UREA NITROGEN 18 mg/dL (9-20); CALCIUM 8.8 mg/dL (8.4-10.2); CHLORIDE 101 mmol/L (98-107); GLUCOSE 95 mg/dL (70-100); POTASSIUM 4.3 mmol/L (3.5-5.1); SODIUM 138 mmol/L (137-145); TOTAL PROTEIN 6.6 g/dL (6.3-8.2)
[2017-03-28] MEDS: ENOXAPARIN SODIUM 60 MG/0.6 ML SYR SUBCUT SCH (08:48)
[2017-03-28] MEDS: CALCIUM/VIT D 600 MG/400 IU 1 TAB TABLET PO SCH (08:50)
[2017-03-28] MEDS: CARBAMIDE PEROXIDE 6.5% OTIC 75 DROP/5 ML BTL EACH EAR SCH (08:51)
[2017-03-28] MEDS: FERROUS SULFATE 325 MG TABLET PO SCH (08:51)
[2017-03-28] MEDS: FESOTERODINE FUMARATE 8 MG PO SCH (08:52)
[2017-03-28] MEDS: LISINOPRIL 20 MG TABLET PO SCH (08:53)
[2017-03-28] MEDS ORDERED: ACETAMINOPHEN 325 MG TABLET PO SCH (09:00)
[2017-03-28] MEDS ORDERED: ACETAMINOPHEN 500 MG TABLET PO SCH (09:00)
[2017-03-28 11:11] VITALS: BP 80/50; PULSE 52; RESP 16; TEMP 97.2; O2SAT 90
[2017-03-28] MEDS: REMOVE PATCH 1 PATCH PATCH TRANSDERM SCH (11:38)
--- NOTE | 2017-03-28 13:26 | PROGRESS NOTE: IM SOAP ---
IM: PN Subjective Interval history: Bilat otalgia related to bilat cerumen impaction. Nursing working to get ears flushed. Persistent severe LBP with any movement. Ambulated to door with walker and assist. Great difficulty getting OOB. No CP, SOB, dizziness. Metoprolol was held and pt started on lisinopril yesterday due to HR 37-49, BP 140/systolic, although last BP 80/50 with pulse 52. Lisinopril was lowered from 20mg to 10mg due to hypotension. BP better today ( except last BP), but bradycardia persists. Will need to consider SSS and need for pacemaker. IM: PN Objective Exam - I&O/Vital Signs I&O: Intake & Output 03/27/17 03/28/17 03/28/17 21:59 05:59 13:59 Intake Total 1080 270 Output Total 225 245 Balance 855 25 Weight 60.5 kg Intake: Oral 1080 270 Output: Urine 225 245 Other: Urine Appearance Clear Clear Clear Urine Color Straw Yellow Yellow Stool Size Moderate Moderate Stool Characteristics Soft Soft Voiding Method Toilet Toilet Toilet # Voids 1 Vital Signs: Last Vital Signs Temp 36.2 C L 03/28/17 11:00 Pulse 52 L 03/28/17 11:00 Resp 16 03/28/17 11:00 BP 80/50 03/28/17 11:00 Pulse Ox 90 03/28/17 11:00 Oxygen Flow Rate 1 Oxygen Delivery Method Room Air - ENT ENT exam: Present: other (Persistent bilat cerumen impaction, severe) - Respiratory Respiratory exam: Present: clear - Cardiovascular Cardiovascular exam: Present: bradycardia, irregular rhythm. Absent: systolic murmur - GI/Abdominal GI/Abdominal exam: Present: soft. Absent: tenderness - Extremities Exam Extremities exam: Absent: calf tenderness, edema - Back Exam Back exam: Present: normal inspection (but minor movement of back caused severe pain. Was able to flex forward about 10 degrees before pain recurred.). Absent : muscle spasm, paraspinal tenderness - Lab Labs: Laboratory Last Values WBC 4.8 X 10^3uL (3.9-10.7) 03/28/17 06:03 RBC 4.62 X 10^6uL (4.20-6.10) 03/28/17 06:03 Hgb 14.7 g/dL (14.0-18.0) 03/28/17 06:03 Hct 43.6 % (42.0-54.0) 03/28/17 06:03 MCV 94.4 fL (80.0-100.0) 03/28/17 06:03 MCH 31.7 pg (29.0-35.0) 03/28/17 06:03 MCHC 33.6 g/dL (32.0-36.0) 03/28/17 06:03 RDW 12.5 % (11.5-14.5) 03/28/17 06:03 Plt Count 100 X 10^3uL (130-440) L 03/28/17 06:03 MPV 8.8 fL (7.4-10.4) 03/28/17 06:03 Neutrophils % 58.3 % (54.0-75.0) 03/28/17 06:03 Lymphocytes % 28.5 % (20.0-40.0) 03/28/17 06:03 Eosinophils % 0.3 % (0.0-6.0) 03/28/17 06:03 Basophils % 0.5 % (0.0-2.0) 03/28/17 06:03 Neutrophils # 2.8 X 10^3uL (2.6-6.7) 03/28/17 06:03 Lymphocytes # 1.4 X 10^3uL (0.8-3.8) 03/28/17 06:03 Monocytes 12.4 % (2.0-10.0) H 03/28/17 06:03 Monocytes # 0.6 X 10^3uL (0.2-1.0) 03/28/17 06:03 Eosinophils # 0.0 X 10^3uL (0.0-0.4) 03/28/17 06:03 Basophils # 0.0 X 10^3uL (0.0-0.1) 03/28/17 06:03 Sodium 138 mmol/L (137-145) 03/28/17 06:03 Potassium 4.3 mmol/L (3.5-5.1) 03/28/17 06:03 Chloride 101 mmol/L (98-107) 03/28/17 06:03 Carbon Dioxide 27 mmol/L (22-30) 03/28/17 06:03 BUN 18 mg/dL (9-20) D 03/28/17 06:03 Creatinine 0.7 mg/dL (0.7-1.3) 03/28/17 06:03 GFR Calculation Not Reportable 03/28/17 06:03 Glucose 95 mg/dL (70-100) 03/28/17 06:03 Calcium 8.8 mg/dL (8.4-10.2) 03/28/17 06:03 Total Bilirubin 1.1 mg/dL (0.2-1.3) D 03/28/17 06:03 AST 24 U/L (17-59) 03/28/17 06:03 ALT 37 U/L (21-72) 03/28/17 06:03 Alkaline Phosphatase 42 U/L (38-126) 03/28/17 06:03 Troponin I < 0.012 ng/mL (0.00-0.034) 03/24/17 10:30 Total Protein 6.6 g/dL (6.3-8.2) 03/28/17 06:03 Albumin 3.4 g/dL (3.5-5.0) L D 03/28/17 06:03 Albumin/Globulin Ratio 1.1 03/28/17 06:03 Urine Color Yellow 03/24/17 13:30 Urine Appearance Clear 03/24/17 13:30 Urine pH 7.0 (5-7) 03/24/17 13:30 Ur Specific [place] 1.015 (0.001-1.035) 03/24/17 13:30 Urine Protein Negative (NEG - TRACE) 03/24/17 13:30 Urine Ketones Negative (NEGATIVE) 03/24/17 13:30 Urine Blood Trace (NEGATIVE) A 03/24/17 13:30 Urine Nitrate Negative (NEGATIVE) 03/24/17 13:30 Urine Bilirubin Negative (NEGATIVE) 03/24/17 13:30 Urine Urobilinogen 0.2mg/dl (normal) (NEG-1mg/dL) 03/24/17 13:30 Ur Leukocyte Esterase Negative (NEGATIVE) 03/24/17 13:30 Urine Glucose Normal (NEGATIVE) 03/24/17 13:30 Assessment and Plan - Date of Encounter Date of Encounter: 03/28/17 (1) Fall Status: Acute Current Visit: Yes (2) Intractable pain Status: Acute Assessment and plan: Persistent Current Visit: Yes (3) Low back pain Status: Acute Assessment and plan: PT/OT Tramadol Ambulation improving Consider MRI Current Visit: Yes (4) Bradycardia Status: Acute Assessment and plan: HR 37-49 persistent despite stopping metoprolol Cardiology consult Consider pacemaker for SSS Current Visit: Yes (5) HTN (hypertension) Status: Acute Assessment and plan: Switched from metoprolol to lisinopril Lisinopril 10mg po daily. Current Visit: Yes (6) Hyperlipidemia Status: Chronic Current Visit: Yes (7) Atrial fibrillation Status: Chronic Assessment and plan: Reschedule Watchman procedure Currently on ASA and inpatient Lovenox Current Visit: No (8) Coronary artery disease Status: Chronic Current Visit: No (9) Impacted cerumen of both ears Status: Acute Assessment and plan: Debrox, Ear canal irrigation bilat Current Visit: Yes - Time Spent With Patient Total time spent with greater than 50% in coordination of care (as documented) at patient's floor/unit and/or counseling patient: (7) Atrial fibrillation Qualifiers:
--- NOTE | 2017-03-28 17:24 | DISCHARGE SUMMARY ---
DATE OF ADMISSION: 03/24/17 DATE OF DISCHARGE: 03/28/17 DATE OF ADMISSION TO SWING BED: 03/28/17 ATTENDING PHYSICIAN: Carlos Alberto Guerra MD DIAGNOSES 1. Status post fall. 2. Intractable pain with lower back pain secondary to #1. 3. Low back pain. 4. Profound bradycardia with heart rate in the 37-49 range despite stopping Metoprolol rule out sick sinus syndrome. 5. Atrial fibrillation, currently on aspirin. Not a candidate for Warfarin due to fall risk. Will need a Watchman closure procedure in the future. 6. Coronary artery disease. 7. Hypertension. 8. Hyperlipidemia. 9. Bilateral cerumen impaction, severe. CONSULTATION: Director [employer] Nadia Hanson MD. HISTORY OF PRESENT ILLNESS: This is an 87-year-old male with some falls 6 months ago and again about 3 months ago. The morning of admission, the patient had another fall, resulting in him sitting down hard. No head or neck injury. Apparently, he was scheduled for placement of a Watchman closure procedure the day of admission. He was n.p.o. since about 12 noon the day prior. He has a poor p.o. fluid intake normally and only eats lunch, no breakfast or dinner normally. Apparently the morning of admission he felt quite dizzy and lightheaded and had an unwitnessed fall. He is complaining of low back pain. Lumbar spine CT scan showed an old compression fracture at T12, but no obvious new acute compression fracture or other injuries. ALLERGIES: None. MEDICATIONS PRIOR TO admission. Levothyroxine 50 mcg p.o. q.day. Metoprolol ER 25 mg p.o. q.day. Finasteride 5 mg p.o. q.day. Toviaz ER 8 mg p.o. q.day. Atorvastatin 20 mg p.o. q.h.s. Tamsulosin 0.4 mg p.o. q.day. Hydrocodone/APAP 5/325 mg one tablet p.o. q.6h p.r.n. pain. Calcium 600 mg with vitamin D 400 IU p.o. b.i.d. Tylenol p.r.n. Aspirin 81 mg p.o. q.day. Ferrous sulfate 325 mg p.o. q.day. Nitroglycerin 0.4 mg sublingual q.5 minutes p.r.n. chest pain. Coumadin has been discontinued in the past. PAST MEDICAL HISTORY 1. Atrial fibrillation followed by meat grinder Dr. Miner and previously on Coumadin, but currently on aspirin. He was scheduled for a Watchman closure device the day of admission but this will need to be rescheduled for a future date. 2. Hyperlipidemia. 3. Hypothyroidism. 4. T12 compression fracture in 2016. 5. Hematuria. 6. Urinary retention. 7. BPH. 8. CAD status post angioplasty and stent of the left axis deviation, followed by Dr. Miner. 9. Osteoporosis. 10. Iron deficiency anemia. 11. Gait instability with fall risk. 12. Rib fracture 09/2016. 13. Right hand metacarpal fracture in 11/2016. 14. Hematoma of the scrotum 09/2016. 15. Hypertension. 16. Cataract surgery, bilateral, in 2009 and laser surgery of the left eye in 2015. SOCIAL HISTORY: . No alcohol. No smoking. FAMILY HISTORY: Unremarkable. REVIEW OF SYSTEMS: No chest pain, chest tightness, palpitations or angina symptoms. No lung, kidney, liver, diabetes, seizures, peptic ulcer disease, skin or allergy disorder. No urinary problems. PREVENTATIVE HEALTH: Gets annual flu shot. PHYSICAL EXAMINATION AT TIME OF DISCHARGE VITAL SIGNS: Blood pressure 80/50, pulse 52, respiratory rate 20. Temperature 36.3. Pulse oxygenation 92% on oxygen at 1 liter per minute by nasal prongs. In the last 24 hours blood pressures have been in the 104-141/56-75 range with pulse 37-49. Last blood pressure and pulse just prior to swing bed status were blood pressure 80/50 with pulse 52. GENERAL: Well-developed, well-nourished elderly male, no acute distress, alert and oriented times 3. Patient is in exquisite pain with minimal movement of his back. When he is resting, there is no pain. HEENT: EOMI. Pupils equally round. Normal conjunctivae. Ear canals show bilateral cerumen impaction. No coryza. Pharynx not injected. NECK: No adenopathy, thyromegaly or bruits. Supple. CHEST: Clear. No rales, rhonchi or wheezes. Good breath sounds and symmetry throughout. COR: Irregular irregular rhythm without murmurs, bradycardic. No obvious murmurs, rubs or clicks. No jugular venous distention. ABDOMEN: Soft, nontender. No hepatosplenomegaly. No masses. No bruits. Bowel sounds present. LOWER EXTREMITIES: No edema. Posterior tibialis pulses present. NEUROLOGIC: Cranial nerves 2-12 intact. Motor 5/5. Sensory intact. HOSPITAL COURSE: Patient was admitted following a fall, resulting in intractable low back pain. CT scan did not reveal an obvious etiology but did show an old compression fracture at T12. However any minimal movement of his back causes exquisite pain. Patient received extensive physical therapy and rehabilitation. Patient was still a 1-2 person assist and was unable to walk out of his room at the time of transfer to swing bed status. The plan is to provide additional physical therapy and occupational therapy and rehabilitation. Also during his stay, the patient was noted to be profoundly bradycardic with heart rates in the 30-40 range despite stopping Metoprolol. Metoprolol was discontinued and patient was started on Lisinopril 10 mg p.o. daily (a 20 mg dose resulted in hypotension). Cardiology consultation was provided by Dr. Hanson. Patient will need to reschedule this Watchman closure procedure and there is going to be consideration for a pacemaker for possible sick sinus syndrome as well. Also patient had bilateral cerumen impaction which was aggressively treated with Debrox and flushing, but so far we have been unable to remove this successfully. PLAN: Patient will be transferred to swing bed status for further physical therapy and rehabilitation at this time. Having communication with Cardiology as to when we can consider further cardiology procedures. Copies to: Oscar Miner MD [facility]
== END 2017-03-28 13:29 | disposition swing bed (61) | DRG 552 ==
LOC: ER 10:42 → IN 12:40
PROVIDERS: ADMIT Family Medicine; ATTEND Family Medicine
DX: M54.5 Low back pain (principal); W01.0XXA Fall on same level from slipping, tripping and stumbling without subsequent striking against object, initial encounter; R00.1 Bradycardia, unspecified; I48.2 Chronic atrial fibrillation; I25.10 Atherosclerotic heart disease of native coronary artery without angina pectoris; I10 Essential (primary) hypertension; E78.5 Hyperlipidemia, unspecified; H61.23 Impacted cerumen, bilateral; N40.1 Benign prostatic hyperplasia with lower urinary tract symptoms; R33.8 Other retention of urine; M81.0 Age-related osteoporosis without current pathological fracture; E03.9 Hypothyroidism, unspecified; Z95.5 Presence of coronary angioplasty implant and graft; Z79.899 Other long term (current) drug therapy
CPT/HCPCS: 36415; 72131; 80048; 80053; 81003; 84484; 85025; 93005; 96360; 99285; A0425; A0429; J1650

== ENCOUNTER 2017-03-28 13:36 | Inpatient (IN) | payer MEDICARE, BC ==
[2017-03-28] MEDS: ACETAMINOPHEN 500 MG TABLET PO SCH ×2 (14:20→20:28)
--- NOTE | 2017-03-28 17:24 | HISTORY & PHYSICAL ---
DATE OF ADMISSION: 03/24/17 DATE OF DISCHARGE: 03/28/17 DATE OF ADMISSION TO SWING BED: 03/28/17 ATTENDING PHYSICIAN: Carlos Alberto Guerra MD DIAGNOSES 1. Status post fall. 2. Intractable pain with lower back pain secondary to #1. 3. Low back pain. 4. Profound bradycardia with heart rate in the 37-49 range despite stopping Metoprolol rule out sick sinus syndrome. 5. Atrial fibrillation, currently on aspirin. Not a candidate for Warfarin due to fall risk. Will need a Watchman closure procedure in the future. 6. Coronary artery disease. 7. Hypertension. 8. Hyperlipidemia. 9. Bilateral cerumen impaction, severe. CONSULTATION: [employer] Nadia Hanson MD. HISTORY OF PRESENT ILLNESS: This is an 87-year-old male with some falls 6 months ago and again about 3 months ago. The morning of admission, the patient had another fall, resulting in him sitting down hard. No head or neck injury. Apparently, he was scheduled for placement of a Watchman closure procedure the day of admission. He was n.p.o. since about 12 noon the day prior. He has a poor p.o. fluid intake normally and only eats lunch, no breakfast or dinner normally. Apparently the morning of admission he felt quite dizzy and lightheaded and had an unwitnessed fall. He is complaining of low back pain. Lumbar spine CT scan showed an old compression fracture at T12, but no obvious new acute compression fracture or other injuries. ALLERGIES: None. MEDICATIONS PRIOR TO admission. Levothyroxine 50 mcg p.o. q.day. Metoprolol ER 25 mg p.o. q.day. Finasteride 5 mg p.o. q.day. Toviaz ER 8 mg p.o. q.day. Atorvastatin 20 mg p.o. q.h.s. Tamsulosin 0.4 mg p.o. q.day. Hydrocodone/APAP 5/325 mg one tablet p.o. q.6h p.r.n. pain. Calcium 600 mg with vitamin D 400 IU p.o. b.i.d. Tylenol p.r.n. Aspirin 81 mg p.o. q.day. Ferrous sulfate 325 mg p.o. q.day. Nitroglycerin 0.4 mg sublingual q.5 minutes p.r.n. chest pain. Coumadin has been discontinued in the past. PAST MEDICAL HISTORY 1. Atrial fibrillation followed by clinical account specialist Dr. Miner and previously on Coumadin, but currently on aspirin. He was scheduled for a Watchman closure device the day of admission but this will need to be rescheduled for a future date. 2. Hyperlipidemia. 3. Hypothyroidism. 4. T12 compression fracture in 2016. 5. Hematuria. 6. Urinary retention. 7. BPH. 8. CAD status post angioplasty and stent of the left axis deviation, followed by Dr. Miner. 9. Osteoporosis. 10. Iron deficiency anemia. 11. Gait instability with fall risk. 12. Rib fracture 09/2016. 13. Right hand metacarpal fracture in 11/2016. 14. Hematoma of the scrotum 09/2016. 15. Hypertension. 16. Cataract surgery, bilateral, in 2009 and laser surgery of the left eye in 2015. SOCIAL HISTORY: . No alcohol. No smoking. FAMILY HISTORY: Unremarkable. REVIEW OF SYSTEMS: No chest pain, chest tightness, palpitations or angina symptoms. No lung, kidney, liver, diabetes, seizures, peptic ulcer disease, skin or allergy disorder. No urinary problems. PREVENTATIVE HEALTH: Gets annual flu shot. PHYSICAL EXAMINATION AT TIME OF DISCHARGE VITAL SIGNS: Blood pressure 80/50, pulse 52, respiratory rate 20. Temperature 36.3. Pulse oxygenation 92% on oxygen at 1 liter per minute by nasal prongs. In the last 24 hours blood pressures have been in the 104-141/56-75 range with pulse 37-49. Last blood pressure and pulse just prior to swing bed status were blood pressure 80/50 with pulse 52. GENERAL: Well-developed, well-nourished elderly male, no acute distress, alert and oriented times 3. Patient is in exquisite pain with minimal movement of his back. When he is resting, there is no pain. HEENT: EOMI. Pupils equally round. Normal conjunctivae. Ear canals show bilateral cerumen impaction. No coryza. Pharynx not injected. NECK: No adenopathy, thyromegaly or bruits. Supple. CHEST: Clear. No rales, rhonchi or wheezes. Good breath sounds and symmetry throughout. COR: Irregular irregular rhythm without murmurs, bradycardic. No obvious murmurs, rubs or clicks. No jugular venous distention. ABDOMEN: Soft, nontender. No hepatosplenomegaly. No masses. No bruits. Bowel sounds present. LOWER EXTREMITIES: No edema. Posterior tibialis pulses present. NEUROLOGIC: Cranial nerves 2-12 intact. Motor 5/5. Sensory intact. HOSPITAL COURSE: Patient was admitted following a fall, resulting in intractable low back pain. CT scan did not reveal an obvious etiology but did show an old compression fracture at T12. However any minimal movement of his back causes exquisite pain. Patient received extensive physical therapy and rehabilitation. Patient was still a 1-2 person assist and was unable to walk out of his room at the time of transfer to swing bed status. The plan is to provide additional physical therapy and occupational therapy and rehabilitation. Also during his stay, the patient was noted to be profoundly bradycardic with heart rates in the 30-40 range despite stopping Metoprolol. Metoprolol was discontinued and patient was started on Lisinopril 10 mg p.o. daily (a 20 mg dose resulted in hypotension). Cardiology consultation was provided by Dr. Hanson. Patient will need to reschedule this Watchman closure procedure and there is going to be consideration for a pacemaker for possible sick sinus syndrome as well. Also patient had bilateral cerumen impaction which was aggressively treated with Debrox and flushing, but so far we have been unable to remove this successfully. PLAN: Patient will be transferred to swing bed status for further physical therapy and rehabilitation at this time. Having communication with Cardiology as to when we can consider further cardiology procedures. Copies to: Oscar Miner MD [facility]
[2017-03-28 19:30] LABS: URINE APPEARANCE SLIGHTLY CLOUDY; URINE BILIRUBIN NEGATIVE (NEGATIVE); URINE BLOOD NEGATIVE (NEGATIVE); URINE CALCIUM OXALATE CRYSTALS FEW (Occasional); URINE COLOR DARK YELLOW; URINE GLUCOSE NORMAL (NEGATIVE); URINE KETONE 5mg/dL (NEGATIVE); URINE LEUKOCYTE ESTERASE NEGATIVE (NEGATIVE); URINE NITRITE NEGATIVE (NEGATIVE); URINE PH 5.5 (5-7); URINE PROTEIN 10mg/dL (trace) (NEG - TRACE); URINE RBC NONE SEEN (0-5/hpf); URINE SPECIFIC GRAVITY 1.025 (0.001-1.035); URINE SQUAMOUS EPITHELIAL CELL 0-5/hpf (<= 15/hpf); URINE UROBILINOGEN NORMAL (NEG-1mg/dL); URINE WBC 0-4/hpf (0-4/hpf)
[2017-03-28 19:31] LABS: URINE BACTERIA NONE SEEN (<10/hpf); URINE MUCUS UP TO 25%/lpf (Up to 25%)
[2017-03-28] MEDS: LIDOCAINE 5% 1 PATCH PATCH TRANSDERM SCH (20:27)
[2017-03-28] MEDS: ATORVASTATIN CALCIUM 10 MG TABLET PO SCH (20:28)
[2017-03-28] MEDS: TAMSULOSIN HCL 0.4 MG CAPSULE PO SCH (20:28)
[2017-03-28] MEDS: FINASTERIDE 5 MG TABLET PO SCH (20:28)
[2017-03-28] MEDS: CALCIUM/VIT D 600 MG/400 IU 1 TAB TABLET PO SCH (20:28)
[2017-03-28] MEDS: traMADol HCL 50 MG TABLET PO PRN (20:29)
[2017-03-29] MEDS: traMADol HCL 50 MG TABLET PO PRN ×3 (05:59→22:30)
[2017-03-29] MEDS: LEVOTHYROXINE 50 MCG TABLET PO SCH (05:59)
[2017-03-29] MEDS: CALCIUM/VIT D 600 MG/400 IU 1 TAB TABLET PO SCH ×2 (08:59→21:03)
[2017-03-29] MEDS: FERROUS SULFATE 325 MG TABLET PO SCH (09:01)
[2017-03-29] MEDS: [UNRECOGNIZED DRUG - REMARK] PO SCH (09:02)
[2017-03-29] MEDS: REMOVE PATCH 1 PATCH PATCH TRANSDERM SCH (09:03)
[2017-03-29] MEDS: LISINOPRIL 20 MG TABLET PO SCH (09:04)
[2017-03-29] MEDS: ACETAMINOPHEN 500 MG TABLET PO SCH ×3 (09:05→21:04)
[2017-03-29] MEDS: CARBAMIDE PEROXIDE 6.5% OTIC 75 DROP/5 ML BTL EACH EAR SCH (09:08)
[2017-03-29] MEDS: ATORVASTATIN CALCIUM 10 MG TABLET PO SCH (21:04)
[2017-03-29] MEDS: FINASTERIDE 5 MG TABLET PO SCH (21:04)
[2017-03-29] MEDS: TAMSULOSIN HCL 0.4 MG CAPSULE PO SCH (21:04)
[2017-03-29] MEDS: LIDOCAINE 5% 1 PATCH PATCH TRANSDERM SCH (21:05)
[2017-03-30] MEDS: LEVOTHYROXINE 50 MCG TABLET PO SCH (06:09)
[2017-03-30] MEDS: traMADol HCL 50 MG TABLET PO PRN (07:40)
[2017-03-30] MEDS: REMOVE PATCH 1 PATCH PATCH TRANSDERM SCH (07:59)
[2017-03-30] MEDS: CARBAMIDE PEROXIDE 6.5% OTIC 75 DROP/5 ML BTL EACH EAR SCH ×2 (08:00→21:12)
[2017-03-30] MEDS: CALCIUM/VIT D 600 MG/400 IU 1 TAB TABLET PO SCH ×2 (08:01→21:12)
[2017-03-30] MEDS: FERROUS SULFATE 325 MG TABLET PO SCH (08:02)
[2017-03-30] MEDS: [UNRECOGNIZED DRUG - REMARK] PO SCH (08:02)
[2017-03-30] MEDS: ACETAMINOPHEN 500 MG TABLET PO SCH ×3 (08:03→21:12)
[2017-03-30] MEDS: LISINOPRIL 20 MG TABLET PO SCH (08:05)
[2017-03-30] MEDS ORDERED: ACETAMINOPHEN 325 MG TABLET PO ONE (08:10)
[2017-03-30] MEDS: TAMSULOSIN HCL 0.4 MG CAPSULE PO SCH (21:12)
[2017-03-30] MEDS: LIDOCAINE 5% 1 PATCH PATCH TRANSDERM SCH (21:12)
[2017-03-30] MEDS: ATORVASTATIN CALCIUM 10 MG TABLET PO SCH (21:12)
[2017-03-30] MEDS: FINASTERIDE 5 MG TABLET PO SCH (21:12)
[2017-03-31] MEDS: LEVOTHYROXINE 50 MCG TABLET PO SCH (06:07)
[2017-03-31] MEDS: ACETAMINOPHEN 500 MG TABLET PO SCH ×3 (09:02→20:16)
[2017-03-31] MEDS: CALCIUM/VIT D 600 MG/400 IU 1 TAB TABLET PO SCH ×2 (09:04→20:16)
[2017-03-31] MEDS: traMADol HCL 50 MG TABLET PO PRN ×2 (09:05→21:53)
[2017-03-31] MEDS: FERROUS SULFATE 325 MG TABLET PO SCH (09:05)
[2017-03-31] MEDS: [UNRECOGNIZED DRUG - REMARK] PO SCH (09:06)
[2017-03-31] MEDS: LISINOPRIL 20 MG TABLET PO SCH (09:06)
[2017-03-31] MEDS: REMOVE PATCH 1 PATCH PATCH TRANSDERM SCH (09:10)
[2017-03-31] MEDS ORDERED: LEVOFLOXACIN 250 MG TABLET PO SCH ×2 (10:00→11:00)
[2017-03-31] MEDS: GUAIFENESIN ER 600 MG TABLET PO SCH ×2 (11:03→20:16)
[2017-03-31 11:26] LABS: BLOOD UREA NITROGEN 17 mg/dL (9-20); CALCIUM 9.6 mg/dL (8.4-10.2); CHLORIDE 100 mmol/L (98-107); GLUCOSE 107 mg/dL (70-100); POTASSIUM 4.5 mmol/L (3.5-5.1); SODIUM 138 mmol/L (137-145)
[2017-03-31 11:35] LABS: HEMATOCRIT 46.1 % (42.0-54.0); HEMOGLOBIN 15.7 g/dL (14.0-18.0); MEAN CELL VOLUME 95.5 fL (80.0-100.0); MEAN CORPUS. HGB CONCENTRATION 34.1 g/dL (32.0-36.0); MEAN CORPUSCULAR HEMOGLOBIN 32.5 pg (29.0-35.0); MEAN PLATELET VOLUME 9.2 fL (7.4-10.4); PLATELET COUNT 126 X 10^3uL (130-440); RED BLOOD COUNT 4.83 X 10^6uL (4.20-6.10); RED CELL DISTRIBUTION WIDTH 12.4 % (11.5-14.5); WHITE BLOOD COUNT 7.7 X 10^3uL (3.9-10.7)
[2017-03-31 12:03] LABS: BAND% (Manual) 0 % (0.0-1.0); LYMPHOCYTE % (Manual) 16 % (20.0-40.0); MONOCYTE % (Manual) 6 % (2.0-10.0)
[2017-03-31 12:04] LABS: NEUTROPHIL % (Manual) 78 % (54.0-75.0); PLATELET ESTIMATE DECREASED
--- NOTE | 2017-03-31 13:00 | RADIOLOGY REPORT ---
Two views of the chest demonstrate the cardiac silhouette to be at the upper limits of normal. The pulmonary vasculature is unremarkable. The lung [place] are clear. No infiltrate, fluid or pneumothorax is seen. IMPRESSION: No acute cardiopulmonary abnormality is identified. MTDD
--- NOTE | 2017-03-31 17:43 | PROGRESS NOTE: IM SOAP ---
IM: PN Subjective Interval history: Called for chest congestion, prod cough with green phlegm, acute onset this AM. No F/C, sinus pressure, coryza, st, PND, wheeze. No aspiration. Main c/o is LBP, worse today. IM: PN Objective Exam - I&O/Vital Signs I&O: Intake & Output 03/31/17 03/31/17 03/31/17 05:59 13:59 21:59 Output Total 525 Balance -525 Output: Urine 525 Other: Urine Appearance Clear Urine Color Yellow Voiding Method Toilet # Voids 3 Vital Signs: Last Vital Signs Temp 36.3 C L 03/31/17 05:53 Pulse 48 L 03/31/17 05:53 Resp 14 03/31/17 09:00 BP 135/55 03/31/17 05:53 Pulse Ox 95 03/31/17 09:00 Oxygen Flow Rate 2 Oxygen Delivery Method Nasal Cannula - ENT ENT exam: Present: normal oropharynx. Absent: other (No coryza) - Neck Neck exam: Present: full ROM. Absent: lymphadenopathy - Respiratory Respiratory exam: Present: rales (bibasilar.). Absent: rhonchi, wheezes - Cardiovascular Cardiovascular exam: Present: irregular rhythm. Absent: systolic murmur - GI/Abdominal GI/Abdominal exam: Present: soft. Absent: tenderness - Extremities Exam Extremities exam: Absent: edema - Lab Labs: Laboratory Last Values WBC 7.7 X 10^3uL (3.9-10.7) 03/31/17 10:40 RBC 4.83 X 10^6uL (4.20-6.10) 03/31/17 10:40 Hgb 15.7 g/dL (14.0-18.0) 03/31/17 10:40 Hct 46.1 % (42.0-54.0) 03/31/17 10:40 MCV 95.5 fL (80.0-100.0) 03/31/17 10:40 MCH 32.5 pg (29.0-35.0) 03/31/17 10:40 MCHC 34.1 g/dL (32.0-36.0) 03/31/17 10:40 RDW 12.4 % (11.5-14.5) 03/31/17 10:40 Plt Count 126 X 10^3uL (130-440) L 03/31/17 10:40 MPV 9.2 fL (7.4-10.4) 03/31/17 10:40 Total Counted 100 03/31/17 10:40 Neutrophils % (Manual) 78 % (54.0-75.0) H 03/31/17 10:40 Band Neuts % (Manual) 0 % (0.0-1.0) 03/31/17 10:40 Lymphocytes % (Manual) 16 % (20.0-40.0) L 03/31/17 10:40 Monocytes % (Manual) 6 % (2.0-10.0) 03/31/17 10:40 Platelet Estimate Decreased 03/31/17 10:40 Sodium 138 mmol/L (137-145) 03/31/17 10:40 Potassium 4.5 mmol/L (3.5-5.1) 03/31/17 10:40 Chloride 100 mmol/L (98-107) 03/31/17 10:40 Carbon Dioxide 31 mmol/L (22-30) H 03/31/17 10:40 BUN 17 mg/dL (9-20) 03/31/17 10:40 Creatinine 0.8 mg/dL (0.7-1.3) 03/31/17 10:40 GFR Calculation Not Reportable 03/31/17 10:40 Glucose 107 mg/dL (70-100) H 03/31/17 10:40 Calcium 9.6 mg/dL (8.4-10.2) 03/31/17 10:40 Urine Color Dark yellow A 03/28/17 13:38 Urine Appearance Slightly cloudy 03/28/17 13:38 Urine pH 5.5 (5-7) 03/28/17 13:38 Ur Specific [place] 1.025 (0.001-1.035) 03/28/17 13:38 Urine Protein 10mg/dl (trace) (NEG - TRACE) 03/28/17 13:38 Urine Ketones 5mg/dl (NEGATIVE) A 03/28/17 13:38 Urine Blood Negative (NEGATIVE) 03/28/17 13:38 Urine Nitrate Negative (NEGATIVE) 03/28/17 13:38 Urine Bilirubin Negative (NEGATIVE) 03/28/17 13:38 Urine Urobilinogen Normal (NEG-1mg/dL) 03/28/17 13:38 Ur Leukocyte Esterase Negative (NEGATIVE) 03/28/17 13:38 Urine RBC None seen (0-5/hpf) 03/28/17 13:38 Urine WBC 0-4/hpf (0-4/hpf) 03/28/17 13:38 Ur Squamous Epith Cells 0-5/hpf (<= 15/hpf) 03/28/17 13:38 Calcium Oxalate Crystal Few (Occasional) 03/28/17 13:38 Urine Bacteria None seen (<10/hpf) 03/28/17 13:38 Urine Mucus Up to 25%/lpf (Up to 25%) 03/28/17 13:38 Urine Glucose Normal (NEGATIVE) 03/28/17 13:38 Assessment and Plan - Date of Encounter Date of Encounter: 03/31/17 (1) Fall Status: Acute Current Visit: No (2) Intractable pain Status: Acute Current Visit: No (3) Low back pain Status: Acute Assessment and plan: PT/OT tramadol, lidocaine patch Current Visit: No (4) Bradycardia Status: Acute Assessment and plan: HR 39-48 BP 119-141/66 24hr Holter results pending Cardiology consult to determine if pt candidate for pacemaker for SSS Current Visit: No (5) Atrial fibrillation Status: Chronic Assessment and plan: ASA To be scheduled for Watchman procedure in future. Current Visit: No (6) Coronary artery disease Status: Chronic Current Visit: No (7) HTN (hypertension) Status: Acute Current Visit: No (8) Hyperlipidemia Status: Chronic Current Visit: No (9) Carotid stenosis Status: Chronic Assessment and plan: Post angioplasty and stent Current Visit: No (10) Weakness Status: Acute Assessment and plan: PT/OT Current Visit: No (11) Impacted cerumen of both ears Status: Acute Current Visit: No (12) Acute bronchitis Status: Acute Assessment and plan: CXR and labs negative. Sputum and BCs pending. Levaquin 500mg po x 1, then 250mg po daily x 4 days. Mucinex 1200mg po bid. Current Visit: Yes - Time Spent With Patient Total time spent with greater than 50% in coordination of care (as documented) at patient's floor/unit and/or counseling patient: Quality Questions - VTE Prophylaxis Assessment VTE Present on Admission?: No Patient at risk for venous thromboembolism?: Yes VTE Risk Level: High Risk Pharmaceutical VTE prophylaxis contraindication reason: contraindicated Mechanical VTE prophylaxis contraindication reason: N/A- VTE prophylaxsis ordered (5) Atrial fibrillation Qualifiers:
[2017-03-31] MEDS ORDERED: CYCLOBENZAPRINE HCL 10 MG TABLET PO SCH (17:45)
[2017-03-31] MEDS: ATORVASTATIN CALCIUM 10 MG TABLET PO SCH (20:15)
[2017-03-31] MEDS: FINASTERIDE 5 MG TABLET PO SCH (20:16)
[2017-03-31] MEDS: LIDOCAINE 5% 1 PATCH PATCH TRANSDERM SCH (20:16)
[2017-03-31] MEDS: CARBAMIDE PEROXIDE 6.5% OTIC 75 DROP/5 ML BTL EACH EAR SCH (20:16)
[2017-03-31] MEDS: TAMSULOSIN HCL 0.4 MG CAPSULE PO SCH (20:16)
[2017-03-31] MEDS: CYCLOBENZAPRINE HCL 10 MG TABLET PO SCH (21:53)
[2017-04-01] MEDS: LEVOTHYROXINE 50 MCG TABLET PO SCH (05:57)
[2017-04-01] MEDS: CYCLOBENZAPRINE HCL 10 MG TABLET PO SCH ×3 (05:57→22:13)
[2017-04-01] MEDS: ACETAMINOPHEN 500 MG TABLET PO SCH ×3 (08:56→21:15)
[2017-04-01] MEDS: LEVOFLOXACIN 250 MG TABLET PO SCH (08:56)
[2017-04-01] MEDS: [UNRECOGNIZED DRUG - REMARK] PO SCH (08:57)
[2017-04-01] MEDS: GUAIFENESIN ER 600 MG TABLET PO SCH ×2 (08:57→21:13)
[2017-04-01] MEDS: FERROUS SULFATE 325 MG TABLET PO SCH (08:57)
[2017-04-01] MEDS: CALCIUM/VIT D 600 MG/400 IU 1 TAB TABLET PO SCH ×2 (08:57→21:14)
[2017-04-01] MEDS: LISINOPRIL 20 MG TABLET PO SCH (08:59)
[2017-04-01] MEDS: REMOVE PATCH 1 PATCH PATCH TRANSDERM SCH (08:59)
--- NOTE | 2017-04-01 12:03 | PROGRESS NOTE: IM APSO ---
Assessment and Plan - Date of Encounter Date of Encounter: 04/01/17 (1) Atrial fibrillation Status: Chronic Assessment and plan: Holter monitor demonstrated atrial fibrillation with an average heart rate of 48bpm (min31 and max99). He is asymptomatic. No urgent need for pacemaker at this point but may need it down the road. Patient clearly needs to recover from trauma. We will follow-up in clinic on 04/15 at 10am. Please call for any problems in the meantime. Current Visit: No - Time Spent With Patient Total time spent with greater than 50% in coordination of care (as documented) at patient's floor/unit and/or counseling patient: IM: PN Objective Exam - I&O/Vital Signs I&O: Intake & Output 03/31/17 04/01/17 04/01/17 21:59 05:59 13:59 Intake Total 950 100 Output Total 540 650 Balance 410 -550 Weight 59.5 kg Intake: Oral 950 100 Output: Urine 540 650 Other: Urine Appearance Clear Clear Urine Color Pale Yellow Stool Size Small Stool Characteristics Soft Formed Voiding Method Toilet Toilet # Voids 4 Vital Signs: Last Vital Signs Temp 36.6 C 04/01/17 06:39 Pulse 45 L 04/01/17 06:39 Resp 16 04/01/17 06:39 BP 129/72 04/01/17 06:39 Pulse Ox 93 04/01/17 06:39 Oxygen Flow Rate 0.5 Oxygen Delivery Method Nasal Cannula - Lab Labs: Laboratory Last Values WBC 7.7 X 10^3uL (3.9-10.7) 03/31/17 10:40 RBC 4.83 X 10^6uL (4.20-6.10) 03/31/17 10:40 Hgb 15.7 g/dL (14.0-18.0) 03/31/17 10:40 Hct 46.1 % (42.0-54.0) 03/31/17 10:40 MCV 95.5 fL (80.0-100.0) 03/31/17 10:40 MCH 32.5 pg (29.0-35.0) 03/31/17 10:40 MCHC 34.1 g/dL (32.0-36.0) 03/31/17 10:40 RDW 12.4 % (11.5-14.5) 03/31/17 10:40 Plt Count 126 X 10^3uL (130-440) L 03/31/17 10:40 MPV 9.2 fL (7.4-10.4) 03/31/17 10:40 Total Counted 100 03/31/17 10:40 Neutrophils % (Manual) 78 % (54.0-75.0) H 03/31/17 10:40 Band Neuts % (Manual) 0 % (0.0-1.0) 03/31/17 10:40 Lymphocytes % (Manual) 16 % (20.0-40.0) L 03/31/17 10:40 Monocytes % (Manual) 6 % (2.0-10.0) 03/31/17 10:40 Platelet Estimate Decreased 03/31/17 10:40 Sodium 138 mmol/L (137-145) 03/31/17 10:40 Potassium 4.5 mmol/L (3.5-5.1) 03/31/17 10:40 Chloride 100 mmol/L (98-107) 03/31/17 10:40 Carbon Dioxide 31 mmol/L (22-30) H 03/31/17 10:40 BUN 17 mg/dL (9-20) 03/31/17 10:40 Creatinine 0.8 mg/dL (0.7-1.3) 03/31/17 10:40 GFR Calculation Not Reportable 03/31/17 10:40 Glucose 107 mg/dL (70-100) H 03/31/17 10:40 Calcium 9.6 mg/dL (8.4-10.2) 03/31/17 10:40 Urine Color Dark yellow A 03/28/17 13:38 Urine Appearance Slightly cloudy 03/28/17 13:38 Urine pH 5.5 (5-7) 03/28/17 13:38 Ur Specific [place] 1.025 (0.001-1.035) 03/28/17 13:38 Urine Protein 10mg/dl (trace) (NEG - TRACE) 03/28/17 13:38 Urine Ketones 5mg/dl (NEGATIVE) A 03/28/17 13:38 Urine Blood Negative (NEGATIVE) 03/28/17 13:38 Urine Nitrate Negative (NEGATIVE) 03/28/17 13:38 Urine Bilirubin Negative (NEGATIVE) 03/28/17 13:38 Urine Urobilinogen Normal (NEG-1mg/dL) 03/28/17 13:38 Ur Leukocyte Esterase Negative (NEGATIVE) 03/28/17 13:38 Urine RBC None seen (0-5/hpf) 03/28/17 13:38 Urine WBC 0-4/hpf (0-4/hpf) 03/28/17 13:38 Ur Squamous Epith Cells 0-5/hpf (<= 15/hpf) 03/28/17 13:38 Calcium Oxalate Crystal Few (Occasional) 03/28/17 13:38 Urine Bacteria None seen (<10/hpf) 03/28/17 13:38 Urine Mucus Up to 25%/lpf (Up to 25%) 03/28/17 13:38 Urine Glucose Normal (NEGATIVE) 03/28/17 13:38 (1) Atrial fibrillation Qualifiers:
[2017-04-01] MEDS: traMADol HCL 50 MG TABLET PO PRN (12:21)
--- NOTE | 2017-04-01 13:05 | PROGRESS NOTE: IM SOAP ---
IM: PN Subjective Interval history: Acute bronchitis symptoms improving. Main c/o is LBP, worse today. Only able to walk in room and not into hallway. IM: PN Objective Exam - I&O/Vital Signs I&O: Intake & Output 03/31/17 04/01/17 04/01/17 21:59 05:59 13:59 Intake Total 950 100 Output Total 540 650 Balance 410 -550 Weight 59.5 kg Intake: Oral 950 100 Output: Urine 540 650 Other: Urine Appearance Clear Clear Urine Color Pale Yellow Stool Size Small Stool Characteristics Soft Formed Voiding Method Toilet Toilet # Voids 4 Vital Signs: Last Vital Signs Temp 36.6 C 04/01/17 06:39 Pulse 45 L 04/01/17 06:39 Resp 16 04/01/17 06:39 BP 129/72 04/01/17 06:39 Pulse Ox 93 04/01/17 06:39 Oxygen Flow Rate 0.5 Oxygen Delivery Method Nasal Cannula - Neck Neck exam: Present: full ROM. Absent: lymphadenopathy - Respiratory Respiratory exam: Present: rales (bibasilar.). Absent: rhonchi, wheezes - Cardiovascular Cardiovascular exam: Present: irregular rhythm. Absent: systolic murmur - GI/Abdominal GI/Abdominal exam: Present: soft. Absent: tenderness - Extremities Exam Extremities exam: Absent: edema - Lab Labs: Laboratory Last Values WBC 7.7 X 10^3uL (3.9-10.7) 03/31/17 10:40 RBC 4.83 X 10^6uL (4.20-6.10) 03/31/17 10:40 Hgb 15.7 g/dL (14.0-18.0) 03/31/17 10:40 Hct 46.1 % (42.0-54.0) 03/31/17 10:40 MCV 95.5 fL (80.0-100.0) 03/31/17 10:40 MCH 32.5 pg (29.0-35.0) 03/31/17 10:40 MCHC 34.1 g/dL (32.0-36.0) 03/31/17 10:40 RDW 12.4 % (11.5-14.5) 03/31/17 10:40 Plt Count 126 X 10^3uL (130-440) L 03/31/17 10:40 MPV 9.2 fL (7.4-10.4) 03/31/17 10:40 Total Counted 100 03/31/17 10:40 Neutrophils % (Manual) 78 % (54.0-75.0) H 03/31/17 10:40 Band Neuts % (Manual) 0 % (0.0-1.0) 03/31/17 10:40 Lymphocytes % (Manual) 16 % (20.0-40.0) L 03/31/17 10:40 Monocytes % (Manual) 6 % (2.0-10.0) 03/31/17 10:40 Platelet Estimate Decreased 03/31/17 10:40 Sodium 138 mmol/L (137-145) 03/31/17 10:40 Potassium 4.5 mmol/L (3.5-5.1) 03/31/17 10:40 Chloride 100 mmol/L (98-107) 03/31/17 10:40 Carbon Dioxide 31 mmol/L (22-30) H 03/31/17 10:40 BUN 17 mg/dL (9-20) 03/31/17 10:40 Creatinine 0.8 mg/dL (0.7-1.3) 03/31/17 10:40 GFR Calculation Not Reportable 03/31/17 10:40 Glucose 107 mg/dL (70-100) H 03/31/17 10:40 Calcium 9.6 mg/dL (8.4-10.2) 03/31/17 10:40 Urine Color Dark yellow A 03/28/17 13:38 Urine Appearance Slightly cloudy 03/28/17 13:38 Urine pH 5.5 (5-7) 03/28/17 13:38 Ur Specific [place] 1.025 (0.001-1.035) 03/28/17 13:38 Urine Protein 10mg/dl (trace) (NEG - TRACE) 03/28/17 13:38 Urine Ketones 5mg/dl (NEGATIVE) A 03/28/17 13:38 Urine Blood Negative (NEGATIVE) 03/28/17 13:38 Urine Nitrate Negative (NEGATIVE) 03/28/17 13:38 Urine Bilirubin Negative (NEGATIVE) 03/28/17 13:38 Urine Urobilinogen Normal (NEG-1mg/dL) 03/28/17 13:38 Ur Leukocyte Esterase Negative (NEGATIVE) 03/28/17 13:38 Urine RBC None seen (0-5/hpf) 03/28/17 13:38 Urine WBC 0-4/hpf (0-4/hpf) 03/28/17 13:38 Ur Squamous Epith Cells 0-5/hpf (<= 15/hpf) 03/28/17 13:38 Calcium Oxalate Crystal Few (Occasional) 03/28/17 13:38 Urine Bacteria None seen (<10/hpf) 03/28/17 13:38 Urine Mucus Up to 25%/lpf (Up to 25%) 03/28/17 13:38 Urine Glucose Normal (NEGATIVE) 03/28/17 13:38 Assessment and Plan - Date of Encounter Date of Encounter: 04/01/17 (1) Fall Status: Acute Current Visit: No (2) Intractable pain Status: Acute Current Visit: No (3) Low back pain Status: Acute Assessment and plan: PT/OT tramadol, lidocaine patch Current Visit: No (4) Bradycardia Status: Acute Assessment and plan: HR 39-48 BP 119-141/66 24hr Holter Atrial fib with bell Cardiology indicates that pt will eventually require a pacemaker. Currently stable and can hold off. Current Visit: No (5) Atrial fibrillation Status: Chronic Assessment and plan: ASA To be scheduled for Watchman procedure in future. Current Visit: No (6) Coronary artery disease Status: Chronic Current Visit: No (7) HTN (hypertension) Status: Acute Current Visit: No (8) Hyperlipidemia Status: Chronic Current Visit: No (9) Carotid stenosis Status: Chronic Current Visit: No (10) Weakness Status: Acute Assessment and plan: PT/OT Current Visit: No (11) Impacted cerumen of both ears Status: Acute Current Visit: No (12) Acute bronchitis Status: Acute Assessment and plan: CXR and labs negative. Sputum and BCs pending. Levaquin 500mg po x 1, then 250mg po daily x 4 days. Mucinex 1200mg po bid. Feeling some better today Current Visit: Yes - Time Spent With Patient Total time spent with greater than 50% in coordination of care (as documented) at patient's floor/unit and/or counseling patient: (5) Atrial fibrillation Qualifiers:
[2017-04-01] MEDS: LIDOCAINE 5% 1 PATCH PATCH TRANSDERM SCH (21:13)
[2017-04-01] MEDS: FINASTERIDE 5 MG TABLET PO SCH (21:14)
[2017-04-01] MEDS: ATORVASTATIN CALCIUM 10 MG TABLET PO SCH (21:14)
[2017-04-01] MEDS: TAMSULOSIN HCL 0.4 MG CAPSULE PO SCH (21:14)
[2017-04-01] MEDS: CARBAMIDE PEROXIDE 6.5% OTIC 75 DROP/5 ML BTL EACH EAR SCH (21:51)
[2017-04-02] MEDS: CYCLOBENZAPRINE HCL 10 MG TABLET PO SCH ×3 (06:13→21:05)
[2017-04-02] MEDS: traMADol HCL 50 MG TABLET PO PRN ×2 (06:14→06:37)
[2017-04-02] MEDS: LEVOTHYROXINE 50 MCG TABLET PO SCH (06:14)
[2017-04-02] MEDS ORDERED: MAGNESIUM HYDROXIDE 30 ML UDC PO ONE (06:27)
[2017-04-02] MEDS: GUAIFENESIN ER 600 MG TABLET PO SCH ×2 (10:32→20:49)
[2017-04-02] MEDS: ACETAMINOPHEN 500 MG TABLET PO SCH ×3 (10:32→20:48)
[2017-04-02] MEDS: FERROUS SULFATE 325 MG TABLET PO SCH (10:32)
[2017-04-02] MEDS: CALCIUM/VIT D 600 MG/400 IU 1 TAB TABLET PO SCH ×2 (10:34→20:49)
[2017-04-02] MEDS: [UNRECOGNIZED DRUG - REMARK] PO SCH (10:35)
[2017-04-02] MEDS: LEVOFLOXACIN 250 MG TABLET PO SCH (10:35)
[2017-04-02] MEDS: POLYETHYLENE GLYCOL 3350 17 GM POWD.PACK PO SCH (10:36)
[2017-04-02] MEDS: REMOVE PATCH 1 PATCH PATCH TRANSDERM SCH (10:36)
[2017-04-02] MEDS: LISINOPRIL 20 MG TABLET PO SCH (10:36)
[2017-04-02] MEDS: FINASTERIDE 5 MG TABLET PO SCH (20:49)
[2017-04-02] MEDS: ATORVASTATIN CALCIUM 10 MG TABLET PO SCH (20:49)
[2017-04-02] MEDS: TAMSULOSIN HCL 0.4 MG CAPSULE PO SCH (20:50)
[2017-04-02] MEDS: LIDOCAINE 5% 1 PATCH PATCH TRANSDERM SCH (20:50)
[2017-04-02] MEDS: CARBAMIDE PEROXIDE 6.5% OTIC 75 DROP/5 ML BTL EACH EAR SCH (20:53)
[2017-04-03] MEDS: traMADol HCL 50 MG TABLET PO PRN (04:49)
[2017-04-03] MEDS: LEVOTHYROXINE 50 MCG TABLET PO SCH (06:12)
[2017-04-03] MEDS: CYCLOBENZAPRINE HCL 10 MG TABLET PO SCH ×3 (06:12→23:45)
--- NOTE | 2017-04-03 08:11 | PROGRESS NOTE: IM APSO ---
Assessment and Plan - Date of Encounter Date of Encounter: 04/03/17 (1) Acute bronchitis Status: Acute Assessment and plan: Improving, culture not contributory at this time, continue present management. Current Visit: Yes (2) Bradycardia Status: Chronic Assessment and plan: Not an urgent issue, followed by cardiol Current Visit: No (3) Fall Status: Resolved Assessment and plan: High risk for falls, here for rehab. I see OT order but not PT, will order. Current Visit: No - Time Spent With Patient Total time spent with greater than 50% in coordination of care (as documented) at patient's floor/unit and/or counseling patient: IM: PN Subjective General: fatigue Respiratory: cough (he thinks it is improving) Gastrointestinal: no abdominal pain Musculoskeletal: pain (low back) IM: PN Objective Exam - I&O/Vital Signs I&O: Intake & Output 04/02/17 04/03/17 04/03/17 21:59 05:59 13:59 Intake Total 800 50 Output Total 485 340 Balance 315 -290 Weight 62 kg Intake: Oral 800 50 Output: Urine 485 340 Other: Urine Appearance Clear Clear Urine Color Light [place] Light [place]oy Voiding Method Urinal Toilet # Voids 1 Vital Signs: Last Vital Signs Temp 36.4 C L 04/03/17 06:37 Pulse 43 L 04/03/17 06:37 Resp 16 04/03/17 06:37 BP 108/60 04/03/17 06:37 Pulse Ox 93 04/03/17 06:37 Oxygen Flow Rate 2 Oxygen Delivery Method Nasal Cannula - Constitutional General appearance: Present: thin - ENT ENT exam: Present: normal oropharynx. Absent: other (No coryza) - Neck Neck exam: Present: full ROM. Absent: lymphadenopathy - Respiratory Respiratory exam: Present: rales (bibasilar; encouraged IS). Absent: rhonchi, wheezes - Cardiovascular Cardiovascular exam: Present: irregular rhythm. Absent: systolic murmur - GI/Abdominal GI/Abdominal exam: Present: soft. Absent: tenderness - Extremities Exam Extremities exam: Absent: edema - Lab Labs: Laboratory Last Values WBC 7.7 X 10^3uL (3.9-10.7) 03/31/17 10:40 RBC 4.83 X 10^6uL (4.20-6.10) 03/31/17 10:40 Hgb 15.7 g/dL (14.0-18.0) 03/31/17 10:40 Hct 46.1 % (42.0-54.0) 03/31/17 10:40 MCV 95.5 fL (80.0-100.0) 03/31/17 10:40 MCH 32.5 pg (29.0-35.0) 03/31/17 10:40 MCHC 34.1 g/dL (32.0-36.0) 03/31/17 10:40 RDW 12.4 % (11.5-14.5) 03/31/17 10:40 Plt Count 126 X 10^3uL (130-440) L 03/31/17 10:40 MPV 9.2 fL (7.4-10.4) 03/31/17 10:40 Total Counted 100 03/31/17 10:40 Neutrophils % (Manual) 78 % (54.0-75.0) H 03/31/17 10:40 Band Neuts % (Manual) 0 % (0.0-1.0) 03/31/17 10:40 Lymphocytes % (Manual) 16 % (20.0-40.0) L 03/31/17 10:40 Monocytes % (Manual) 6 % (2.0-10.0) 03/31/17 10:40 Platelet Estimate Decreased 03/31/17 10:40 Sodium 138 mmol/L (137-145) 03/31/17 10:40 Potassium 4.5 mmol/L (3.5-5.1) 03/31/17 10:40 Chloride 100 mmol/L (98-107) 03/31/17 10:40 Carbon Dioxide 31 mmol/L (22-30) H 03/31/17 10:40 BUN 17 mg/dL (9-20) 03/31/17 10:40 Creatinine 0.8 mg/dL (0.7-1.3) 03/31/17 10:40 GFR Calculation Not Reportable 03/31/17 10:40 Glucose 107 mg/dL (70-100) H 03/31/17 10:40 Calcium 9.6 mg/dL (8.4-10.2) 03/31/17 10:40 Urine Color Dark yellow A 03/28/17 13:38 Urine Appearance Slightly cloudy 03/28/17 13:38 Urine pH 5.5 (5-7) 03/28/17 13:38 Ur Specific [place] 1.025 (0.001-1.035) 03/28/17 13:38 Urine Protein 10mg/dl (trace) (NEG - TRACE) 03/28/17 13:38 Urine Ketones 5mg/dl (NEGATIVE) A 03/28/17 13:38 Urine Blood Negative (NEGATIVE) 03/28/17 13:38 Urine Nitrate Negative (NEGATIVE) 03/28/17 13:38 Urine Bilirubin Negative (NEGATIVE) 03/28/17 13:38 Urine Urobilinogen Normal (NEG-1mg/dL) 03/28/17 13:38 Ur Leukocyte Esterase Negative (NEGATIVE) 03/28/17 13:38 Urine RBC None seen (0-5/hpf) 03/28/17 13:38 Urine WBC 0-4/hpf (0-4/hpf) 03/28/17 13:38 Ur Squamous Epith Cells 0-5/hpf (<= 15/hpf) 03/28/17 13:38 Calcium Oxalate Crystal Few (Occasional) 03/28/17 13:38 Urine Bacteria None seen (<10/hpf) 03/28/17 13:38 Urine Mucus Up to 25%/lpf (Up to 25%) 03/28/17 13:38 Urine Glucose Normal (NEGATIVE) 03/28/17 13:38
[2017-04-03] MEDS: POLYETHYLENE GLYCOL 3350 17 GM POWD.PACK PO SCH (10:45)
[2017-04-03] MEDS: CALCIUM/VIT D 600 MG/400 IU 1 TAB TABLET PO SCH ×2 (10:47→20:25)
[2017-04-03] MEDS: LEVOFLOXACIN 250 MG TABLET PO SCH (10:48)
[2017-04-03] MEDS: GUAIFENESIN ER 600 MG TABLET PO SCH ×2 (10:48→20:25)
[2017-04-03] MEDS: REMOVE PATCH 1 PATCH PATCH TRANSDERM SCH (10:49)
[2017-04-03] MEDS: ACETAMINOPHEN 500 MG TABLET PO SCH ×3 (10:51→20:25)
[2017-04-03] MEDS: LISINOPRIL 20 MG TABLET PO SCH ×2 (10:53→11:49)
[2017-04-03] MEDS: [UNRECOGNIZED DRUG - REMARK] PO SCH (10:56)
[2017-04-03] MEDS ORDERED: LISINOPRIL 10 MG TABLET PO ONE ×2 (10:57→12:01)
[2017-04-03] MEDS: FERROUS SULFATE 325 MG TABLET PO SCH ×2 (12:37→13:30)
[2017-04-03] MEDS: TAMSULOSIN HCL 0.4 MG CAPSULE PO SCH (20:23)
[2017-04-03] MEDS: FINASTERIDE 5 MG TABLET PO SCH (20:23)
[2017-04-03] MEDS: ATORVASTATIN CALCIUM 10 MG TABLET PO SCH (20:25)
[2017-04-03] MEDS: CARBAMIDE PEROXIDE 6.5% OTIC 75 DROP/5 ML BTL EACH EAR SCH (20:26)
[2017-04-03] MEDS: LIDOCAINE 5% 1 PATCH PATCH TRANSDERM SCH (20:26)
[2017-04-04] MEDS: CYCLOBENZAPRINE HCL 10 MG TABLET PO SCH ×3 (05:05→21:25)
[2017-04-04] MEDS: LEVOTHYROXINE 50 MCG TABLET PO SCH (05:36)
[2017-04-04] MEDS ORDERED: MAGNESIUM HYDROXIDE 30 ML UDC ONE (06:27)
[2017-04-04] MEDS: CALCIUM/VIT D 600 MG/400 IU 1 TAB TABLET PO SCH ×2 (10:26→21:26)
[2017-04-04] MEDS: GUAIFENESIN ER 600 MG TABLET PO SCH (10:27)
[2017-04-04] MEDS: ACETAMINOPHEN 500 MG TABLET PO SCH ×3 (10:27→21:24)
[2017-04-04] MEDS: LEVOFLOXACIN 250 MG TABLET PO SCH (10:27)
[2017-04-04] MEDS: [UNRECOGNIZED DRUG - REMARK] PO SCH (10:29)
[2017-04-04] MEDS: REMOVE PATCH 1 PATCH PATCH TRANSDERM SCH (10:29)
[2017-04-04] MEDS: POLYETHYLENE GLYCOL 3350 17 GM POWD.PACK PO SCH (10:31)
[2017-04-04] MEDS: LISINOPRIL 20 MG TABLET PO SCH (10:45)
--- NOTE | 2017-04-04 13:29 | PROGRESS NOTE: IM SOAP ---
IM: PN Subjective Respiratory: cough (productive with clear phlegm, improving) Gastrointestinal: no abdominal pain Musculoskeletal: pain (low back, positional) IM: PN Objective Exam - I&O/Vital Signs I&O: Intake & Output 04/03/17 04/04/17 04/04/17 21:59 05:59 13:59 Intake Total 1450 125 Output Total 600 500 Balance 850 -375 Weight 60 kg Intake: Oral 1450 125 Output: Urine 600 500 Other: Urine Appearance Clear Clear Clear Urine Color Yellow Straw Straw Stool Size Small Stool Characteristics Soft Formed Voiding Method Toilet Toilet Toilet # Voids 3 Vital Signs: Last Vital Signs Temp 36.4 C L 04/04/17 06:58 Pulse 46 L 04/04/17 06:58 Resp 24 04/04/17 10:00 BP 155/69 04/04/17 06:58 Pulse Ox 93 04/04/17 10:36 Oxygen Flow Rate 1 Oxygen Delivery Method Nasal Cannula - Respiratory Respiratory exam: Absent: rales, rhonchi, wheezes - Cardiovascular Cardiovascular exam: Present: irregular rhythm. Absent: systolic murmur - GI/Abdominal GI/Abdominal exam: Present: soft. Absent: tenderness - Extremities Exam Extremities exam: Absent: edema - Lab Labs: Laboratory Last Values WBC 7.7 X 10^3uL (3.9-10.7) 03/31/17 10:40 RBC 4.83 X 10^6uL (4.20-6.10) 03/31/17 10:40 Hgb 15.7 g/dL (14.0-18.0) 03/31/17 10:40 Hct 46.1 % (42.0-54.0) 03/31/17 10:40 MCV 95.5 fL (80.0-100.0) 03/31/17 10:40 MCH 32.5 pg (29.0-35.0) 03/31/17 10:40 MCHC 34.1 g/dL (32.0-36.0) 03/31/17 10:40 RDW 12.4 % (11.5-14.5) 03/31/17 10:40 Plt Count 126 X 10^3uL (130-440) L 03/31/17 10:40 MPV 9.2 fL (7.4-10.4) 03/31/17 10:40 Total Counted 100 03/31/17 10:40 Neutrophils % (Manual) 78 % (54.0-75.0) H 03/31/17 10:40 Band Neuts % (Manual) 0 % (0.0-1.0) 03/31/17 10:40 Lymphocytes % (Manual) 16 % (20.0-40.0) L 03/31/17 10:40 Monocytes % (Manual) 6 % (2.0-10.0) 03/31/17 10:40 Platelet Estimate Decreased 03/31/17 10:40 Sodium 138 mmol/L (137-145) 03/31/17 10:40 Potassium 4.5 mmol/L (3.5-5.1) 03/31/17 10:40 Chloride 100 mmol/L (98-107) 03/31/17 10:40 Carbon Dioxide 31 mmol/L (22-30) H 03/31/17 10:40 BUN 17 mg/dL (9-20) 03/31/17 10:40 Creatinine 0.8 mg/dL (0.7-1.3) 03/31/17 10:40 GFR Calculation Not Reportable 03/31/17 10:40 Glucose 107 mg/dL (70-100) H 03/31/17 10:40 Calcium 9.6 mg/dL (8.4-10.2) 03/31/17 10:40 Urine Color Dark yellow A 03/28/17 13:38 Urine Appearance Slightly cloudy 03/28/17 13:38 Urine pH 5.5 (5-7) 03/28/17 13:38 Ur Specific [place] 1.025 (0.001-1.035) 03/28/17 13:38 Urine Protein 10mg/dl (trace) (NEG - TRACE) 03/28/17 13:38 Urine Ketones 5mg/dl (NEGATIVE) A 03/28/17 13:38 Urine Blood Negative (NEGATIVE) 03/28/17 13:38 Urine Nitrate Negative (NEGATIVE) 03/28/17 13:38 Urine Bilirubin Negative (NEGATIVE) 03/28/17 13:38 Urine Urobilinogen Normal (NEG-1mg/dL) 03/28/17 13:38 Ur Leukocyte Esterase Negative (NEGATIVE) 03/28/17 13:38 Urine RBC None seen (0-5/hpf) 03/28/17 13:38 Urine WBC 0-4/hpf (0-4/hpf) 03/28/17 13:38 Ur Squamous Epith Cells 0-5/hpf (<= 15/hpf) 03/28/17 13:38 Calcium Oxalate Crystal Few (Occasional) 03/28/17 13:38 Urine Bacteria None seen (<10/hpf) 03/28/17 13:38 Urine Mucus Up to 25%/lpf (Up to 25%) 03/28/17 13:38 Urine Glucose Normal (NEGATIVE) 03/28/17 13:38 Assessment and Plan - Date of Encounter Date of Encounter: 04/04/17 (1) Fall Status: Resolved Current Visit: No (2) Intractable pain Status: Acute Current Visit: No (3) Low back pain Status: Acute Assessment and plan: PT/OT tramadol, lidocaine patch Current Visit: No (4) Bradycardia Status: Chronic Assessment and plan: HR 39-48 BP 119-141/66 24hr Holter Atrial fib with bell Cardiology indicates that pt will eventually require a pacemaker. Currently stable and can hold off. Current Visit: No (5) Atrial fibrillation Status: Chronic Assessment and plan: ASA To be scheduled for Watchman procedure in future. Current Visit: No (6) Coronary artery disease Status: Chronic Current Visit: No (7) HTN (hypertension) Status: Acute Current Visit: No (8) Hyperlipidemia Status: Chronic Current Visit: No (9) Carotid stenosis Status: Chronic Assessment and plan: Post angioplasty and stent Current Visit: No (10) Weakness Status: Acute Assessment and plan: PT/OT Current Visit: No (11) Impacted cerumen of both ears Status: Acute Current Visit: No (12) Acute bronchitis Status: Acute Assessment and plan: CXR and labs negative. Sputum MRSA Levaquin Mucinex 1200mg po bid. Feeling some better today Current Visit: Yes - Time Spent With Patient Total time spent with greater than 50% in coordination of care (as documented) at patient's floor/unit and/or counseling patient:
[2017-04-04] MEDS: FERROUS SULFATE 325 MG TABLET PO SCH (13:34)
[2017-04-04] MEDS: TAMSULOSIN HCL 0.4 MG CAPSULE PO SCH (21:24)
[2017-04-04] MEDS: FINASTERIDE 5 MG TABLET PO SCH (21:24)
[2017-04-04] MEDS: ATORVASTATIN CALCIUM 10 MG TABLET PO SCH (21:26)
[2017-04-04] MEDS: LIDOCAINE 5% 1 PATCH PATCH TRANSDERM SCH (21:27)
[2017-04-04] MEDS: CARBAMIDE PEROXIDE 6.5% OTIC 75 DROP/5 ML BTL EACH EAR SCH (21:37)
[2017-04-05] MEDS: CYCLOBENZAPRINE HCL 10 MG TABLET PO SCH ×3 (05:48→21:44)
[2017-04-05] MEDS: LEVOTHYROXINE 50 MCG TABLET PO SCH (05:48)
[2017-04-05] MEDS: ACETAMINOPHEN 500 MG TABLET PO SCH ×3 (09:45→20:28)
[2017-04-05] MEDS: CALCIUM/VIT D 600 MG/400 IU 1 TAB TABLET PO SCH ×2 (09:46→20:29)
[2017-04-05] MEDS: traMADol HCL 50 MG TABLET PO PRN (09:46)
[2017-04-05] MEDS: LEVOFLOXACIN 250 MG TABLET PO SCH (09:46)
[2017-04-05] MEDS: LISINOPRIL 20 MG TABLET PO SCH (09:47)
[2017-04-05] MEDS: REMOVE PATCH 1 PATCH PATCH TRANSDERM SCH (09:48)
[2017-04-05] MEDS: [UNRECOGNIZED DRUG - REMARK] PO SCH (09:51)
[2017-04-05] MEDS: POLYETHYLENE GLYCOL 3350 17 GM POWD.PACK PO SCH (11:45)
[2017-04-05] MEDS: FERROUS SULFATE 325 MG TABLET PO SCH (13:13)
[2017-04-05] MEDS: FINASTERIDE 5 MG TABLET PO SCH (20:28)
[2017-04-05] MEDS: TAMSULOSIN HCL 0.4 MG CAPSULE PO SCH (20:30)
[2017-04-05] MEDS: ATORVASTATIN CALCIUM 10 MG TABLET PO SCH (20:31)
[2017-04-05] MEDS: LIDOCAINE 5% 1 PATCH PATCH TRANSDERM SCH (20:32)
[2017-04-05] MEDS: CARBAMIDE PEROXIDE 6.5% OTIC 75 DROP/5 ML BTL EACH EAR SCH (20:32)
[2017-04-06] MEDS: CYCLOBENZAPRINE HCL 10 MG TABLET PO SCH ×3 (06:15→21:47)
[2017-04-06] MEDS: LEVOTHYROXINE 50 MCG TABLET PO SCH (06:15)
[2017-04-06] MEDS: ACETAMINOPHEN 500 MG TABLET PO SCH ×3 (08:41→20:40)
[2017-04-06] MEDS: traMADol HCL 50 MG TABLET PO PRN ×2 (08:41→20:54)
[2017-04-06] MEDS ORDERED: traMADol HCL 50 MG TABLET PO ONE (08:46)
[2017-04-06] MEDS: CALCIUM/VIT D 600 MG/400 IU 1 TAB TABLET PO SCH ×2 (08:46→20:38)
[2017-04-06] MEDS: POLYETHYLENE GLYCOL 3350 17 GM POWD.PACK PO SCH (08:47)
[2017-04-06] MEDS: REMOVE PATCH 1 PATCH PATCH TRANSDERM SCH (08:47)
[2017-04-06] MEDS: LISINOPRIL 20 MG TABLET PO SCH (08:47)
[2017-04-06] MEDS: [UNRECOGNIZED DRUG - REMARK] PO SCH (08:55)
[2017-04-06] MEDS: LEVOFLOXACIN 250 MG TABLET PO SCH (08:55)
[2017-04-06] MEDS: FERROUS SULFATE 325 MG TABLET PO SCH (14:43)
[2017-04-06] MEDS: LIDOCAINE 5% 1 PATCH PATCH TRANSDERM SCH (20:38)
[2017-04-06] MEDS: FINASTERIDE 5 MG TABLET PO SCH (20:38)
[2017-04-06] MEDS: ATORVASTATIN CALCIUM 10 MG TABLET PO SCH (20:38)
[2017-04-06] MEDS: TAMSULOSIN HCL 0.4 MG CAPSULE PO SCH (20:38)
[2017-04-06] MEDS: CARBAMIDE PEROXIDE 6.5% OTIC 75 DROP/5 ML BTL EACH EAR SCH (20:39)
[2017-04-07] MEDS: LEVOTHYROXINE 50 MCG TABLET PO SCH (06:08)
[2017-04-07] MEDS: CYCLOBENZAPRINE HCL 10 MG TABLET PO SCH ×3 (06:08→23:35)
[2017-04-07] MEDS: ACETAMINOPHEN 500 MG TABLET PO SCH ×3 (08:16→20:26)
[2017-04-07] MEDS: [UNRECOGNIZED DRUG - REMARK] PO SCH (08:19)
[2017-04-07] MEDS: CALCIUM/VIT D 600 MG/400 IU 1 TAB TABLET PO SCH ×2 (08:19→20:26)
[2017-04-07] MEDS: LISINOPRIL 20 MG TABLET PO SCH (08:20)
[2017-04-07] MEDS: REMOVE PATCH 1 PATCH PATCH TRANSDERM SCH (08:23)
[2017-04-07] MEDS: POLYETHYLENE GLYCOL 3350 17 GM POWD.PACK PO SCH (08:29)
[2017-04-07] MEDS: traMADol HCL 50 MG TABLET PO PRN ×2 (08:29→23:36)
[2017-04-07] MEDS ORDERED: traMADol HCL 50 MG TABLET PO ONE (08:41)
[2017-04-07] MEDS: FERROUS SULFATE 325 MG TABLET PO SCH (14:40)
[2017-04-07] MEDS: CARBAMIDE PEROXIDE 6.5% OTIC 75 DROP/5 ML BTL EACH EAR SCH (20:00)
[2017-04-07] MEDS: FINASTERIDE 5 MG TABLET PO SCH (20:26)
[2017-04-07] MEDS: TAMSULOSIN HCL 0.4 MG CAPSULE PO SCH (20:26)
[2017-04-07] MEDS: ATORVASTATIN CALCIUM 10 MG TABLET PO SCH (20:26)
[2017-04-07] MEDS: LIDOCAINE 5% 1 PATCH PATCH TRANSDERM SCH (20:27)
[2017-04-08] MEDS: CYCLOBENZAPRINE HCL 10 MG TABLET PO SCH ×3 (06:50→21:20)
[2017-04-08] MEDS: LEVOTHYROXINE 50 MCG TABLET PO SCH (06:50)
[2017-04-08] MEDS: ACETAMINOPHEN 500 MG TABLET PO SCH ×3 (09:21→21:19)
[2017-04-08] MEDS: CALCIUM/VIT D 600 MG/400 IU 1 TAB TABLET PO SCH ×2 (09:22→21:19)
[2017-04-08] MEDS: [UNRECOGNIZED DRUG - REMARK] PO SCH (09:23)
[2017-04-08] MEDS: POLYETHYLENE GLYCOL 3350 17 GM POWD.PACK PO SCH (09:23)
[2017-04-08] MEDS: LISINOPRIL 20 MG TABLET PO SCH (09:25)
[2017-04-08] MEDS: REMOVE PATCH 1 PATCH PATCH TRANSDERM SCH (09:26)
[2017-04-08] MEDS: FERROUS SULFATE 325 MG TABLET PO SCH (11:32)
[2017-04-08] MEDS: CARBAMIDE PEROXIDE 6.5% OTIC 75 DROP/5 ML BTL EACH EAR SCH (20:31)
[2017-04-08] MEDS: TAMSULOSIN HCL 0.4 MG CAPSULE PO SCH (21:19)
[2017-04-08] MEDS: ATORVASTATIN CALCIUM 10 MG TABLET PO SCH (21:19)
[2017-04-08] MEDS: LIDOCAINE 5% 1 PATCH PATCH TRANSDERM SCH (21:20)
[2017-04-08] MEDS: FINASTERIDE 5 MG TABLET PO SCH (21:20)
[2017-04-09] MEDS: CYCLOBENZAPRINE HCL 10 MG TABLET PO SCH ×3 (06:10→22:55)
[2017-04-09] MEDS: LEVOTHYROXINE 50 MCG TABLET PO SCH (06:11)
[2017-04-09] MEDS: LISINOPRIL 20 MG TABLET PO SCH (08:41)
[2017-04-09] MEDS: ACETAMINOPHEN 500 MG TABLET PO SCH ×3 (08:41→20:33)
[2017-04-09] MEDS: REMOVE PATCH 1 PATCH PATCH TRANSDERM SCH (08:42)
[2017-04-09] MEDS: [UNRECOGNIZED DRUG - REMARK] PO SCH (08:42)
[2017-04-09] MEDS: POLYETHYLENE GLYCOL 3350 17 GM POWD.PACK PO SCH (08:42)
[2017-04-09] MEDS: CALCIUM/VIT D 600 MG/400 IU 1 TAB TABLET PO SCH ×2 (08:43→20:34)
[2017-04-09] MEDS: FERROUS SULFATE 325 MG TABLET PO SCH (12:31)
[2017-04-09] MEDS: TAMSULOSIN HCL 0.4 MG CAPSULE PO SCH (20:34)
[2017-04-09] MEDS: FINASTERIDE 5 MG TABLET PO SCH (20:34)
[2017-04-09] MEDS: ATORVASTATIN CALCIUM 10 MG TABLET PO SCH (20:34)
[2017-04-09] MEDS: CARBAMIDE PEROXIDE 6.5% OTIC 75 DROP/5 ML BTL EACH EAR SCH (20:35)
[2017-04-09] MEDS: LIDOCAINE 5% 1 PATCH PATCH TRANSDERM SCH (20:45)
[2017-04-10] MEDS: CYCLOBENZAPRINE HCL 10 MG TABLET PO SCH ×3 (06:07→22:33)
[2017-04-10] MEDS: LEVOTHYROXINE 50 MCG TABLET PO SCH (06:07)
[2017-04-10 09:21] LABS: A/G RATIO 1.1; ALKALINE PHOSPHATASE 78 U/L (38-126); ALT 25 U/L (21-72); AST 23 U/L (17-59); BILIRUBIN, TOTAL 2.1 mg/dL (0.2-1.3); BLOOD UREA NITROGEN 17 mg/dL (9-20); CHLORIDE 103 mmol/L (98-107); GLUCOSE 148 mg/dL (70-100); HEMATOCRIT 45.9 % (42.0-54.0); HEMOGLOBIN 15.6 g/dL (14.0-18.0); MAGNESIUM 2.1 mg/dL (1.6-2.3); POTASSIUM 3.8 mmol/L (3.5-5.1); SODIUM 140 mmol/L (137-145); TOTAL PROTEIN 7.8 g/dL (6.3-8.2)
[2017-04-10] MEDS: [UNRECOGNIZED DRUG - REMARK] PO SCH (09:39)
[2017-04-10] MEDS: LISINOPRIL 20 MG TABLET PO SCH (09:39)
[2017-04-10] MEDS: CALCIUM/VIT D 600 MG/400 IU 1 TAB TABLET PO SCH ×2 (09:39→20:29)
[2017-04-10] MEDS: ACETAMINOPHEN 500 MG TABLET PO SCH ×4 (09:39→20:40)
[2017-04-10 09:40] LABS: BASOPHILS 0.6 % (0.0-2.0); EOSINOPHILS 2.3 % (0.0-6.0); EOSINOPHILS# 0.1 X 10^3uL (0.0-0.4); LYMPHOCYTES 20.7 % (20.0-40.0); LYMPHOCYTES# 1.1 X 10^3uL (0.8-3.8); MEAN CELL VOLUME 94.4 fL (80.0-100.0); MEAN CORPUS. HGB CONCENTRATION 33.9 g/dL (32.0-36.0); MONOCYTES# 0.3 X 10^3uL (0.2-1.0); NEUTROPHILS 70.4 % (54.0-75.0); PLATELET COUNT 247 X 10^3uL (130-440); RED BLOOD COUNT 4.86 X 10^6uL (4.20-6.10); WHITE BLOOD COUNT 5.5 X 10^3uL (3.9-10.7)
[2017-04-10] MEDS: REMOVE PATCH 1 PATCH PATCH TRANSDERM SCH (09:41)
[2017-04-10] MEDS: POLYETHYLENE GLYCOL 3350 17 GM POWD.PACK PO SCH (09:41)
--- NOTE | 2017-04-10 09:50 | PROGRESS NOTE: IM APSO ---
Assessment and Plan - Date of Encounter Date of Encounter: 04/10/17 (1) Cough Status: Acute Assessment and plan: Was asked by nursing to reassess patient related to cough- treated with antibiotic therapy last week but ongoing cough noted. Has been afebrile, no oxygen demand but some increased fatigue. patient felt symptoms were improving then plateaued. Previous sputum culture grew MRSA- recommend repeat culture after course of levaquin. If progression in symptoms will repeat CXR. FU labs ordered for monitoring. Current Visit: Yes (2) Acute bronchitis Status: Acute Assessment and plan: Still ongoing cough after treatment for bronchitis last week. reassessment today and exam benign other than cough. evaluation as above. Current Visit: Yes (3) HTN (hypertension) Status: Acute Assessment and plan: Values have increased- trial dose adjustment in lisinopril to 20mg. if ongoing elevation may need further adjustments. Limited with medications due to bradycardia issue. Current Visit: No (4) Low back pain Status: Acute Assessment and plan: Stable with current treatment/swing bed. plan for d/c on tuesday with additional caregivers at home. Current Visit: No (5) Bradycardia Status: Chronic Assessment and plan: working with cardiology and likely to need additional procedure in future. Current Visit: No (6) Gait instability Status: Chronic Assessment and plan: stabilization with swing bed stay Current Visit: No - Time Spent With Patient Total time spent with greater than 50% in coordination of care (as documented) at patient's floor/unit and/or counseling patient: 25 - 35 minutes Estimated anticipated discharge: plan for d/c 04/10 IM: PN Subjective Interval history: Was asked by nursing staff to evaluate patient for ongoing cough- did have CXR and course of antibiotics last week but symptoms persistant. Culture with MRSA and staff wondered if infection truly cleared. General: fatigue (felt like was doing well but last few days more fatigued/weak) Respiratory: cough (productive with clear phlegm, improving) Gastrointestinal: no abdominal pain Musculoskeletal: pain (low back, positional) IM: PN Objective Exam - I&O/Vital Signs I&O: Intake & Output 04/09/17 04/10/17 04/10/17 21:59 05:59 13:59 Intake Total 1040 50 Output Total 950 550 Balance 90 -500 Weight 60.5 kg Intake: Oral 1040 50 Output: Urine 950 550 Other: Urine Appearance Clear Clear Urine Color Yellow Yellow Stool Size Moderate Stool Characteristics Black Voiding Method Toilet Toilet # Voids 2 # Bowel Movements 1 Vital Signs: Last Vital Signs Temp 36.7 C 04/10/17 06:59 Pulse 59 L 04/10/17 06:22 Resp 15 04/10/17 06:22 BP 181/82 04/10/17 06:22 Pulse Ox 90 04/10/17 06:22 Oxygen Flow Rate 1 Oxygen Delivery Method Room Air - Constitutional General appearance: Present: thin - Head Head exam: Present: atraumatic, normal inspection - Eye Eye exam: Absent: conjunctival injection - ENT ENT exam: Present: normal oropharynx. Absent: other (No coryza) - Neck Neck exam: Present: full ROM. Absent: lymphadenopathy - Respiratory Respiratory exam: Present: other (wet cough noted). Absent: accessory muscle use, decreased breath sounds, rales, rhonchi, wheezes - Cardiovascular Cardiovascular exam: Present: irregular rhythm. Absent: systolic murmur - GI/Abdominal GI/Abdominal exam: Present: soft. Absent: tenderness - Extremities Exam Extremities exam: Absent: edema - Neurological Exam Neurological exam: Present: alert - Psychiatric Psychiatric exam: Present: normal affect, normal mood - Allied Health Notes Allied health notes reviewed: nursing - Lab Labs: Laboratory Last Values WBC 7.7 X 10^3uL (3.9-10.7) 03/31/17 10:40 RBC 4.83 X 10^6uL (4.20-6.10) 03/31/17 10:40 Hgb 15.7 g/dL (14.0-18.0) 03/31/17 10:40 Hct 46.1 % (42.0-54.0) 03/31/17 10:40 MCV 95.5 fL (80.0-100.0) 03/31/17 10:40 MCH 32.5 pg (29.0-35.0) 03/31/17 10:40 MCHC 34.1 g/dL (32.0-36.0) 03/31/17 10:40 RDW 12.4 % (11.5-14.5) 03/31/17 10:40 Plt Count 126 X 10^3uL (130-440) L 03/31/17 10:40 MPV 9.2 fL (7.4-10.4) 03/31/17 10:40 Total Counted 100 03/31/17 10:40 Neutrophils % (Manual) 78 % (54.0-75.0) H 03/31/17 10:40 Band Neuts % (Manual) 0 % (0.0-1.0) 03/31/17 10:40 Lymphocytes % (Manual) 16 % (20.0-40.0) L 03/31/17 10:40 Monocytes % (Manual) 6 % (2.0-10.0) 03/31/17 10:40 Platelet Estimate Decreased 03/31/17 10:40 Sodium 140 mmol/L (137-145) 04/10/17 09:05 Potassium 3.8 mmol/L (3.5-5.1) 04/10/17 09:05 Chloride 103 mmol/L (98-107) 04/10/17 09:05 Carbon Dioxide 26 mmol/L (22-30) 04/10/17 09:05 BUN 17 mg/dL (9-20) 04/10/17 09:05 Creatinine 0.8 mg/dL (0.7-1.3) 04/10/17 09:05 GFR Calculation Not Reportable 04/10/17 09:05 Glucose 148 mg/dL (70-100) H 04/10/17 09:05 Calcium 9.0 mg/dL (8.4-10.2) 04/10/17 09:05 Magnesium 2.1 mg/dL (1.6-2.3) 04/10/17 09:05 Total Bilirubin 2.1 mg/dL (0.2-1.3) H D 04/10/17 09:05 AST 23 U/L (17-59) 04/10/17 09:05 ALT 25 U/L (21-72) 04/10/17 09:05 Alkaline Phosphatase 78 U/L (38-126) 04/10/17 09:05 Total Protein 7.8 g/dL (6.3-8.2) 04/10/17 09:05 Albumin 4.0 g/dL (3.5-5.0) 04/10/17 09:05 Albumin/Globulin Ratio 1.1 04/10/17 09:05 Urine Color Dark yellow A 03/28/17 13:38 Urine Appearance Slightly cloudy 03/28/17 13:38 Urine pH 5.5 (5-7) 03/28/17 13:38 Ur Specific [place] 1.025 (0.001-1.035) 03/28/17 13:38 Urine Protein 10mg/dl (trace) (NEG - TRACE) 03/28/17 13:38 Urine Ketones 5mg/dl (NEGATIVE) A 03/28/17 13:38 Urine Blood Negative (NEGATIVE) 03/28/17 13:38 Urine Nitrate Negative (NEGATIVE) 03/28/17 13:38 Urine Bilirubin Negative (NEGATIVE) 03/28/17 13:38 Urine Urobilinogen Normal (NEG-1mg/dL) 03/28/17 13:38 Ur Leukocyte Esterase Negative (NEGATIVE) 03/28/17 13:38 Urine RBC None seen (0-5/hpf) 03/28/17 13:38 Urine WBC 0-4/hpf (0-4/hpf) 03/28/17 13:38 Ur Squamous Epith Cells 0-5/hpf (<= 15/hpf) 03/28/17 13:38 Calcium Oxalate Crystal Few (Occasional) 03/28/17 13:38 Urine Bacteria None seen (<10/hpf) 03/28/17 13:38 Urine Mucus Up to 25%/lpf (Up to 25%) 03/28/17 13:38 Urine Glucose Normal (NEGATIVE) 03/28/17 13:38 Quality Questions - VTE Prophylaxis Assessment VTE Present on Admission?: No Patient at risk for venous thromboembolism?: No VTE Risk Level: Moderate Risk Pharmaceutical VTE prophylaxis contraindication reason: N/A- VTE prophylaxsis ordered Mechanical VTE prophylaxis contraindication reason: N/A- VTE prophylaxsis ordered
[2017-04-10] MEDS: FERROUS SULFATE 325 MG TABLET PO SCH (12:32)
[2017-04-10] MEDS ORDERED: ACETAMINOPHEN 325 MG TABLET PO ONE ×2 (15:19→20:43)
[2017-04-10] MEDS: CARBAMIDE PEROXIDE 6.5% OTIC 75 DROP/5 ML BTL EACH EAR SCH (20:23)
[2017-04-10] MEDS: ATORVASTATIN CALCIUM 10 MG TABLET PO SCH (20:29)
[2017-04-10] MEDS: LIDOCAINE 5% 1 PATCH PATCH TRANSDERM SCH (20:29)
[2017-04-10] MEDS: FINASTERIDE 5 MG TABLET PO SCH (20:29)
[2017-04-10] MEDS: TAMSULOSIN HCL 0.4 MG CAPSULE PO SCH (20:30)
[2017-04-11] MEDS: LEVOTHYROXINE 50 MCG TABLET PO SCH (05:45)
[2017-04-11] MEDS: CYCLOBENZAPRINE HCL 10 MG TABLET PO SCH ×3 (05:45→21:22)
[2017-04-11] MEDS: LISINOPRIL 20 MG TABLET PO SCH (08:40)
[2017-04-11] MEDS: POLYETHYLENE GLYCOL 3350 17 GM POWD.PACK PO SCH (08:40)
[2017-04-11] MEDS: REMOVE PATCH 1 PATCH PATCH TRANSDERM SCH (08:40)
[2017-04-11] MEDS: [UNRECOGNIZED DRUG - REMARK] PO SCH (08:40)
[2017-04-11] MEDS: ACETAMINOPHEN 500 MG TABLET PO SCH ×3 (08:40→21:21)
[2017-04-11] MEDS: CALCIUM/VIT D 600 MG/400 IU 1 TAB TABLET PO SCH ×2 (08:40→21:22)
[2017-04-11] MEDS ORDERED: ACETAMINOPHEN 325 MG TABLET PO ONE (08:45)
--- NOTE | 2017-04-11 10:59 | PROGRESS NOTE: IM SOAP ---
IM: PN Subjective General: fatigue (felt like was doing well ) Respiratory: cough (productive with clear phlegm, improving) Gastrointestinal: no abdominal pain Musculoskeletal: pain (low back, positional) IM: PN Objective Exam - I&O/Vital Signs I&O: Intake & Output 04/10/17 04/11/17 04/11/17 21:59 05:59 13:59 Intake Total 920 100 Output Total 600 Balance 320 100 Weight 63 kg Intake: Oral 920 100 Output: Urine 600 Other: Urine Appearance Clear Clear Urine Color Yellow Yellow Stool Size Moderate Moderate Stool Characteristics Black Voiding Method Toilet Toilet # Voids 2 # Bowel Movements 2 Vital Signs: Last Vital Signs Temp 36.4 C L 04/11/17 07:00 Pulse 56 L 04/11/17 07:00 Resp 20 04/11/17 09:00 BP 156/77 04/11/17 07:00 Pulse Ox 92 04/11/17 09:00 Oxygen Flow Rate 2 Oxygen Delivery Method Room Air - Respiratory Respiratory exam: Absent: accessory muscle use, decreased breath sounds, rales, rhonchi, wheezes - Cardiovascular Cardiovascular exam: Present: irregular rhythm. Absent: systolic murmur - GI/Abdominal GI/Abdominal exam: Present: soft. Absent: tenderness - Extremities Exam Extremities exam: Absent: edema - Lab Labs: Laboratory Last Values WBC 5.5 X 10^3uL (3.9-10.7) 04/10/17 09:05 RBC 4.86 X 10^6uL (4.20-6.10) 04/10/17 09:05 Hgb 15.6 g/dL (14.0-18.0) 04/10/17 09:05 Hct 45.9 % (42.0-54.0) 04/10/17 09:05 MCV 94.4 fL (80.0-100.0) 04/10/17 09:05 MCH 32.0 pg (29.0-35.0) 04/10/17 09:05 MCHC 33.9 g/dL (32.0-36.0) 04/10/17 09:05 RDW 12.0 % (11.5-14.5) 04/10/17 09:05 Plt Count 247 X 10^3uL (130-440) 04/10/17 09:05 MPV 9.0 fL (7.4-10.4) 04/10/17 09:05 Total Counted 100 03/31/17 10:40 Neutrophils % 70.4 % (54.0-75.0) 04/10/17 09:05 Neutrophils % (Manual) 78 % (54.0-75.0) H 03/31/17 10:40 Band Neuts % (Manual) 0 % (0.0-1.0) 03/31/17 10:40 Lymphocytes % 20.7 % (20.0-40.0) 04/10/17 09:05 Lymphocytes % (Manual) 16 % (20.0-40.0) L 03/31/17 10:40 Monocytes % (Manual) 6 % (2.0-10.0) 03/31/17 10:40 Eosinophils % 2.3 % (0.0-6.0) 04/10/17 09:05 Basophils % 0.6 % (0.0-2.0) 04/10/17 09:05 Neutrophils # 4.0 X 10^3uL (2.6-6.7) 04/10/17 09:05 Lymphocytes # 1.1 X 10^3uL (0.8-3.8) 04/10/17 09:05 Monocytes 6.0 % (2.0-10.0) 04/10/17 09:05 Monocytes # 0.3 X 10^3uL (0.2-1.0) 04/10/17 09:05 Eosinophils # 0.1 X 10^3uL (0.0-0.4) 04/10/17 09:05 Basophils # 0.0 X 10^3uL (0.0-0.1) 04/10/17 09:05 Platelet Estimate Decreased 03/31/17 10:40 Sodium 140 mmol/L (137-145) 04/10/17 09:05 Potassium 3.8 mmol/L (3.5-5.1) 04/10/17 09:05 Chloride 103 mmol/L (98-107) 04/10/17 09:05 Carbon Dioxide 26 mmol/L (22-30) 04/10/17 09:05 BUN 17 mg/dL (9-20) 04/10/17 09:05 Creatinine 0.8 mg/dL (0.7-1.3) 04/10/17 09:05 GFR Calculation Not Reportable 04/10/17 09:05 Glucose 148 mg/dL (70-100) H 04/10/17 09:05 Calcium 9.0 mg/dL (8.4-10.2) 04/10/17 09:05 Magnesium 2.1 mg/dL (1.6-2.3) 04/10/17 09:05 Total Bilirubin 2.1 mg/dL (0.2-1.3) H D 04/10/17 09:05 AST 23 U/L (17-59) 04/10/17 09:05 ALT 25 U/L (21-72) 04/10/17 09:05 Alkaline Phosphatase 78 U/L (38-126) 04/10/17 09:05 Total Protein 7.8 g/dL (6.3-8.2) 04/10/17 09:05 Albumin 4.0 g/dL (3.5-5.0) 04/10/17 09:05 Albumin/Globulin Ratio 1.1 04/10/17 09:05 Urine Color Dark yellow A 03/28/17 13:38 Urine Appearance Slightly cloudy 03/28/17 13:38 Urine pH 5.5 (5-7) 03/28/17 13:38 Ur Specific [place] 1.025 (0.001-1.035) 03/28/17 13:38 Urine Protein 10mg/dl (trace) (NEG - TRACE) 03/28/17 13:38 Urine Ketones 5mg/dl (NEGATIVE) A 03/28/17 13:38 Urine Blood Negative (NEGATIVE) 03/28/17 13:38 Urine Nitrate Negative (NEGATIVE) 03/28/17 13:38 Urine Bilirubin Negative (NEGATIVE) 03/28/17 13:38 Urine Urobilinogen Normal (NEG-1mg/dL) 03/28/17 13:38 Ur Leukocyte Esterase Negative (NEGATIVE) 03/28/17 13:38 Urine RBC None seen (0-5/hpf) 03/28/17 13:38 Urine WBC 0-4/hpf (0-4/hpf) 03/28/17 13:38 Ur Squamous Epith Cells 0-5/hpf (<= 15/hpf) 03/28/17 13:38 Calcium Oxalate Crystal Few (Occasional) 03/28/17 13:38 Urine Bacteria None seen (<10/hpf) 03/28/17 13:38 Urine Mucus Up to 25%/lpf (Up to 25%) 03/28/17 13:38 Urine Glucose Normal (NEGATIVE) 03/28/17 13:38 Assessment and Plan - Date of Encounter Date of Encounter: 04/11/17 (1) Fall Status: Resolved Current Visit: No (2) Intractable pain Status: Acute Current Visit: No (3) Low back pain Status: Acute Assessment and plan: PT/OT tramadol, lidocaine patch 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 Currently stable and can hold off. Current Visit: No (5) Atrial fibrillation Status: Chronic Assessment and plan: ASA To be scheduled for Watchman procedure in future. Current Visit: No (6) Coronary artery disease Status: Chronic Current Visit: No (7) HTN (hypertension) Status: Chronic Current Visit: No (8) Hyperlipidemia Status: Chronic Current Visit: No (9) Carotid stenosis Status: Chronic Assessment and plan: Post angioplasty and stent Current Visit: No (10) Weakness Status: Acute Assessment and plan: PT/OT Improved sufficient to return home. At increased risk for rehospitalization for related reasons. Current Visit: No (11) Impacted cerumen of both ears Status: Acute Current Visit: No (12) Acute bronchitis Status: Acute Assessment and plan: CXR and labs negative. Sputum MRSA Levaquin Mucinex 1200mg po bid. Feeling some better today Current Visit: Yes - Time Spent With Patient Total time spent with greater than 50% in coordination of care (as documented) at patient's floor/unit and/or counseling patient: Estimated anticipated discharge: plan for d/c 04/10 (5) Atrial fibrillation Qualifiers:
[2017-04-11] MEDS: FERROUS SULFATE 325 MG TABLET PO SCH (11:06)
[2017-04-11] MEDS: traMADol HCL 50 MG TABLET PO PRN (11:44)
[2017-04-11] MEDS: NITROGLYCERIN 0.4 MG TAB.SUBL SUBLINGUAL ONE ×3 (11:46→11:56)
[2017-04-11] MEDS ORDERED: CALCIUM CARBONATE 300 MG TAB.CHEW PO ONE (11:57)
[2017-04-11 12:27] LABS: BLOOD UREA NITROGEN 17 mg/dL (9-20); CALCIUM 9.3 mg/dL (8.4-10.2); CHLORIDE 102 mmol/L (98-107); GLUCOSE 115 mg/dL (70-100); POTASSIUM 4.2 mmol/L (3.5-5.1); SODIUM 139 mmol/L (137-145)
[2017-04-11] MEDS ORDERED: MORPHINE SULFATE 10 MG/ML SYR IV PRN (12:31)
[2017-04-11 12:39] LABS: CKMB 0.68 ng/mL (0.00-2.37)
--- NOTE | 2017-04-11 12:40 | RADIOLOGY REPORT ---
HISTORY: Chest and back pain. COMPARISON: 03/31/2017 FINDINGS: 1 view of the chest obtained. There is no consolidation. There is no pleural effusion. There is no pneumothorax. Mild cardiomegaly is noted, the mediastinal silhouette is unremarkable. There is no abnormality of the pulmonary vessels. There is no focal lung parenchymal nodule. There is no bone l esion. IMPRESSION: Cardiomegaly, no acute abnormality. Final Electronic Signature: This report was electronically signed by Beau Gallo MD, FACR on 2016 12:38 PM. sarai /
[2017-04-11] MEDS: MORPHINE SULFATE 2 MG/ML SYR IV PRN ×2 (12:47→13:03)
[2017-04-11 12:50] LABS: TROPONIN I < 0.012 ng/mL (0.00-0.034)
[2017-04-11 12:51] LABS: HEMATOCRIT 42.5 % (42.0-54.0); HEMOGLOBIN 14.5 g/dL (14.0-18.0); MEAN CELL VOLUME 94.3 fL (80.0-100.0); MEAN CORPUS. HGB CONCENTRATION 34.1 g/dL (32.0-36.0); MEAN CORPUSCULAR HEMOGLOBIN 32.2 pg (29.0-35.0); MEAN PLATELET VOLUME 8.6 fL (7.4-10.4); RED BLOOD COUNT 4.51 X 10^6uL (4.20-6.10); WHITE BLOOD COUNT 9.4 X 10^3uL (3.9-10.7)
[2017-04-11 12:52] LABS: EOSINOPHIL % (Manual) 2 % (0.0-6.0); LYMPHOCYTE % (Manual) 18 % (20.0-40.0); MONOCYTE % (Manual) 3 % (2.0-10.0); NEUTROPHIL % (Manual) 77 % (54.0-75.0); PLATELET COUNT 238 X 10^3uL (130-440); PLATELET ESTIMATE ADEQUATE
[2017-04-11] MEDS: ENOXAPARIN SODIUM 60 MG/0.6 ML SYR SUBCUT SCH ×2 (12:57→20:22)
[2017-04-11] MEDS ORDERED: NITROGLYCERIN OINT 1 GM PACKET TOPICAL SCH (13:00)
[2017-04-11] MEDS ORDERED: ENOXAPARIN SODIUM 100 MG/ML SYR SUBCUT SCH (13:00)
[2017-04-11 19:14] LABS: CKMB 0.67 ng/mL (0.00-2.37)
[2017-04-11 19:16] LABS: CREATINE KINASE 29 U/L (55-170); TROPONIN I < 0.012 ng/mL (0.00-0.034)
[2017-04-11] MEDS: CARBAMIDE PEROXIDE 6.5% OTIC 75 DROP/5 ML BTL EACH EAR SCH (21:11)
[2017-04-11] MEDS: TAMSULOSIN HCL 0.4 MG CAPSULE PO SCH (21:20)
[2017-04-11] MEDS: NITROGLYCERIN OINT 1 GM PACKET TOPICAL SCH (21:21)
[2017-04-11] MEDS: ATORVASTATIN CALCIUM 10 MG TABLET PO SCH (21:21)
[2017-04-11] MEDS: FINASTERIDE 5 MG TABLET PO SCH (21:22)
[2017-04-11] MEDS: LIDOCAINE 5% 1 PATCH PATCH TRANSDERM SCH (21:23)
[2017-04-12 00:28] LABS: CKMB 0.74 ng/mL (0.00-2.37)
[2017-04-12 00:31] LABS: CREATINE KINASE 24 U/L (55-170); TROPONIN I < 0.012 ng/mL (0.00-0.034)
--- NOTE | 2017-04-12 01:57 | DISCHARGE SUMMARY ---
DATE OF ADMISSION: 03/28/17 DATE OF DISCHARGE: 04/10/17 DIAGNOSES 1. Status post fall. 2. Intractable low back pain secondary to number one. 3. Low back pain. 4. Profound bradycardia with heart rate in the 37-49 range despite taking metoprolol presumptive sick sinus syndrome. 5. Atrial fibrillation, corrected on aspirin. Not a candidate for warfarin due to fall risk. Will need a Watchman closure procedure in the future. 6. Coronary artery disease. 7. Hypertension. 8. Hyperlipidemia. 9. Bilateral cerumen impaction, severe. 10. Acute bronchitis. CONSULTATION: Medical Affairs Director Dr. Oscar Miner. HISTORY OF PRESENT ILLNESS: This is an 87-year-old male who has had some falls 6 months ago and again about 3 months ago. The morning of admission 03/24/17 to [facility], the patient had another fall, resulting in him sitting down hard. No head or neck injury. He was scheduled for placement of a Watchman closure procedure the day of admission. He was n.p.o. since about 12 noon the day prior. He had poor p.o. fluid intake normally and only eats lunch, no breakfast or dinner normally. The morning of admission he felt quite dizzy and lightheaded and had an unwitnessed fall. He was complaining of low back pain. Lumbar spine CT scan showed an old compression fracture at T12 but no obvious acute compression fracture or other injuries. Please see previously dictated history and physical for further details. SWING BED COURSE: The patient was transitioned to swing bed for additional physical therapy and occupational therapy and rehabilitation. Apparently, even with no movement, he had exquisite pain. Over time, his pain came under better control with a combination of physical therapy, OT, lidocaine patch, tramadol and Flexeril. 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 In addition, he had profound bradycardia with heart rates in the 37-49 range, despite stopping metoprolol. The situation was discussed with Dr. Miner and he is considering possible placement of a pacemaker at the time of his Watchman procedure for atrial fibrillation. During his stay, he was aggressively treated for bilateral cerumen impaction. Also developed acute bronchitis for which antibiotics were warranted during his stay. DISCHARGE INSTRUCTIONS: The patient may participate in activities as able. He is to ambulate with his walker t.i.d. and be up in a chair t.i.d. He is on a cardiac diet. DISCHARGE FOLLOWUP: He will follow up with Dr. Miner on 04/15/[address] Guerra 04/18/17. He will follow up with home health care physical therapy. 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 DISCHARGE MEDICATIONS Aspirin 81 mg p.o. q.day. Atorvastatin 20 mg p.o. at bedtime. Calcium 600 mg with vitamin D 400 IU p.o. b.i.d. Cyclobenzaprine 5 mg p.o. q.8h for low back pain. Ferrous sulfate 325 mg p.o. q.day. Toviaz 8 mg p.o. q.day. Finasteride 5 mg p.o. q.h.s. Levothyroxine 50 mcg p.o. q.day. Lidoderm 5% patch to be applied in the morning and removed at night for low back pain. Lisinopril 20 mg p.o. q.day. Tamsulosin 0.4 mg p.o. q.h.s. Tramadol 50 mg p.o. q.6h p.r.n. pain. Copy to Dr. Kristofer ARROYO
[2017-04-12] MEDS: NITROGLYCERIN OINT 1 GM PACKET TOPICAL SCH ×2 (02:00→08:34)
--- NOTE | 2017-04-12 02:42 | CONSULTATION ---
DATE OF CONSULTATION: 04/11/17 REQUESTING PHYSICIAN: Dr. Guerra REASON FOR CONSULTATION: Chest pain. HISTORY OF PRESENT ILLNESS: The patient is an 87-year-old male known to the heart clinic. He has history of chronic atrial fibrillation, hypertension, CAD with prior LAD stent. He was admitted to [facility] March 29 for evaluation of back pain. He has also been treated for pneumonia. He was anticipating discharge later this morning when he had fairly abrupt onset of 10/ 10 chest pain. The pain was localized to the center of his chest with no radiation. There was no associated shortness of breath, diaphoresis or nausea. When seen by me shortly after onset of discomfort he rated the discomfort 5/ 10 in intensity but appeared very comfortable and did not appear to be any pain at all. He had been treated with nitroglycerin sublingual as well as IV morphine. EKGs done at 11:30 and 12:10 both reviewed by me demonstrated atrial fibrillation with no acute ST-T wave changes compared to prior. He had a bedside rest echocardiogram performed which I reviewed personally demonstrating normal LV systolic function with no regional wall motion abnormalities, LV of 60%. There was no pericardial effusion. There was no indication of aortic dissection. CURRENT MEDICATIONS: Have been Aspirin. Lipitor. Calcium. Proscar. Iron. Synthroid. Lisinopril 20 mg a day. PHYSICAL EXAMINATION VITAL SIGNS: Blood pressure 98/64, pulse 60 in atrial fibrillation, O2 saturation 99%. GENERAL: Elderly, frail male in no apparent distress. Alert and oriented times 3. NECK: Neck veins are not elevated. Carotid upstrokes are normal. CHEST/LUNGS: Clear to auscultation. No wheeze or rales. CARDIAC: No LV, RV or PA lift. S1 and S2 are within normal limits, irregularly irregular rhythm, 2/6 systolic murmur. ABDOMEN: Soft, nontender, nondistended. No masses or bruits. EXTREMITIES: No edema. Peripheral pulses are palpable. His extremities are warm. LABORATORY DATA: WBC of 9.4, hemoglobin 14.5, platelet count 238,000. Troponin level less than 0.012. Potassium 4.2, creatinine 0.9. D-dimer 552. CHEST X-RAY: Done this afternoon demonstrates cardiomegaly with no acute findings. SOCIAL HISTORY: He is . Does not smoke or drink alcohol. FAMILY HISTORY: No premature cardiovascular disease. EXTENSIVE PAST MEDICAL HISTORY: Including 1. CAD, prior LAD stent. 2. Hypertension. 3. Hyperlipidemia. 4. Compression fractures. 5. Urinary retention. 6. BPH. 7. Gait instability with fall risk. 8. Cataract surgery. IMPRESSION 1. Chest pain of indeterminate etiology, negative troponin, no acute changes on EKG, no wall motion abnormality on echocardiogram. 2. Chronic atrial fibrillation. 3. Status post fall with low back pain. 4. Pneumonia. 5. CAD, prior LAD stent. 6. History of hypertension. 7. History of hyperlipidemia. RECOMMENDATION: At this time the patient does not appear to have acute coronary syndrome as a cause of his discomfort. We will continue to follow his clinical status closely. Other etiology of his chest discomfort is being evaluated by his attending physician. We will follow up with him in the morning. If he developed objective evidence of ischemia transfer to [facility] may be warranted. This was discussed with the patient and his attending physician. All questions answered. CRUZ
[2017-04-12] MEDS: LEVOTHYROXINE 50 MCG TABLET PO SCH (06:05)
[2017-04-12] MEDS: CYCLOBENZAPRINE HCL 10 MG TABLET PO SCH ×2 (06:05→14:26)
[2017-04-12 06:29] VITALS: BP 138/66; PULSE 46; TEMP 97.8
[2017-04-12 07:02] LABS: CREATINE KINASE 23 U/L (55-170)
[2017-04-12 07:07] LABS: TROPONIN I < 0.012 ng/mL (0.00-0.034)
[2017-04-12 07:23] LABS: CKMB 0.74 ng/mL (0.00-2.37)
[2017-04-12] MEDS: CALCIUM/VIT D 600 MG/400 IU 1 TAB TABLET PO SCH (08:34)
[2017-04-12] MEDS: ACETAMINOPHEN 500 MG TABLET PO SCH ×2 (08:34→14:26)
[2017-04-12] MEDS: LISINOPRIL 20 MG TABLET PO SCH (08:34)
[2017-04-12] MEDS: REMOVE PATCH 1 PATCH PATCH TRANSDERM SCH (08:35)
[2017-04-12] MEDS: ENOXAPARIN SODIUM 60 MG/0.6 ML SYR SUBCUT SCH (08:35)
[2017-04-12] MEDS: POLYETHYLENE GLYCOL 3350 17 GM POWD.PACK PO SCH (08:35)
[2017-04-12] MEDS: [UNRECOGNIZED DRUG - REMARK] PO SCH (08:42)
--- NOTE | 2017-04-12 09:13 | PROGRESS NOTE: IM SOAP ---
IM: PN Subjective Cardiovascular: other (described as a "hole in his chest", 3/10 in intensity, no SOB/diaphoresis, N/V; not pleuritic) Respiratory: cough (productive with clear phlegm, improving) Gastrointestinal: no abdominal pain Musculoskeletal: pain (low back, positional) IM: PN Objective Exam - I&O/Vital Signs I&O: Intake & Output 04/11/17 04/12/17 04/12/17 21:59 05:59 13:59 Intake Total 480 245 Output Total 450 150 Balance 30 95 Weight 62 kg Intake: Oral 480 245 Output: Urine 450 150 Other: Urine Appearance Clear Urine Color Straw Voiding Method Toilet Toilet # Voids 2 Vital Signs: Last Vital Signs Temp 36.6 C 04/12/17 06:27 Pulse 46 L 04/12/17 06:27 Resp 15 04/12/17 06:27 BP 138/66 04/12/17 06:27 Pulse Ox 99 04/12/17 06:27 Oxygen Flow Rate 2 Oxygen Delivery Method Nasal Cannula - Constitutional General appearance: Present: thin, other (elderly) - Head Head exam: Present: atraumatic, normal inspection - Eye Eye exam: Absent: conjunctival injection - ENT ENT exam: Present: normal oropharynx. Absent: other (No coryza) - Neck Neck exam: Present: full ROM. Absent: lymphadenopathy - Respiratory Respiratory exam: Absent: accessory muscle use, decreased breath sounds, rales, rhonchi, wheezes - Cardiovascular Cardiovascular exam: Present: irregular rhythm, S1, S2. Absent: JVD, systolic murmur - GI/Abdominal GI/Abdominal exam: Present: soft. Absent: tenderness - Extremities Exam Extremities exam: Absent: edema - Neurological Exam Neurological exam: Present: alert - Psychiatric Psychiatric exam: Present: normal affect, normal mood - Skin Skin exam: Present: other - Allied Health Notes Allied health notes reviewed: nursing - Lab Labs: Laboratory Last Values WBC 9.4 X 10^3uL (3.9-10.7) 04/11/17 12:00 RBC 4.51 X 10^6uL (4.20-6.10) 04/11/17 12:00 Hgb 14.5 g/dL (14.0-18.0) 04/11/17 12:00 Hct 42.5 % (42.0-54.0) 04/11/17 12:00 MCV 94.3 fL (80.0-100.0) 04/11/17 12:00 MCH 32.2 pg (29.0-35.0) 04/11/17 12:00 MCHC 34.1 g/dL (32.0-36.0) 04/11/17 12:00 RDW 12.0 % (11.5-14.5) 04/11/17 12:00 Plt Count 238 X 10^3uL (130-440) 04/11/17 12:00 MPV 8.6 fL (7.4-10.4) 04/11/17 12:00 Total Counted 100 04/11/17 12:00 Neutrophils % 70.4 % (54.0-75.0) 04/10/17 09:05 Neutrophils % (Manual) 77 % (54.0-75.0) H 04/11/17 12:00 Band Neuts % (Manual) 0 % (0.0-1.0) 03/31/17 10:40 Lymphocytes % 20.7 % (20.0-40.0) 04/10/17 09:05 Lymphocytes % (Manual) 18 % (20.0-40.0) L 04/11/17 12:00 Monocytes % (Manual) 3 % (2.0-10.0) 04/11/17 12:00 Eosinophils % 2.3 % (0.0-6.0) 04/10/17 09:05 Eosinophils % (Manual) 2 % (0.0-6.0) 04/11/17 12:00 Basophils % 0.6 % (0.0-2.0) 04/10/17 09:05 Neutrophils # 4.0 X 10^3uL (2.6-6.7) 04/10/17 09:05 Lymphocytes # 1.1 X 10^3uL (0.8-3.8) 04/10/17 09:05 Monocytes 6.0 % (2.0-10.0) 04/10/17 09:05 Monocytes # 0.3 X 10^3uL (0.2-1.0) 04/10/17 09:05 Eosinophils # 0.1 X 10^3uL (0.0-0.4) 04/10/17 09:05 Basophils # 0.0 X 10^3uL (0.0-0.1) 04/10/17 09:05 Platelet Estimate Adequate 04/11/17 12:00 D-Dimer 552 ng/mL H* 04/11/17 12:30 Sodium 139 mmol/L (137-145) 04/11/17 12:00 Potassium 4.2 mmol/L (3.5-5.1) 04/11/17 12:00 Chloride 102 mmol/L (98-107) 04/11/17 12:00 Carbon Dioxide 27 mmol/L (22-30) 04/11/17 12:00 BUN 17 mg/dL (9-20) 04/11/17 12:00 Creatinine 0.9 mg/dL (0.7-1.3) 04/11/17 12:00 GFR Calculation Not Reportable 04/11/17 12:00 Glucose 115 mg/dL (70-100) H 04/11/17 12:00 Calcium 9.3 mg/dL (8.4-10.2) 04/11/17 12:00 Magnesium 2.1 mg/dL (1.6-2.3) 04/10/17 09:05 Total Bilirubin 2.1 mg/dL (0.2-1.3) H D 04/10/17 09:05 AST 23 U/L (17-59) 04/10/17 09:05 ALT 25 U/L (21-72) 04/10/17 09:05 Alkaline Phosphatase 78 U/L (38-126) 04/10/17 09:05 Creatine Kinase 23 U/L (55-170) L 04/12/17 06:15 CK-MB (CK-2) 0.74 ng/mL (0.00-2.37) 04/12/17 06:15 Troponin I < 0.012 ng/mL (0.00-0.034) 04/12/17 06:15 Total Protein 7.8 g/dL (6.3-8.2) 04/10/17 09:05 Albumin 4.0 g/dL (3.5-5.0) 04/10/17 09:05 Albumin/Globulin Ratio 1.1 04/10/17 09:05 Urine Color Dark yellow A 03/28/17 13:38 Urine Appearance Slightly cloudy 03/28/17 13:38 Urine pH 5.5 (5-7) 03/28/17 13:38 Ur Specific [place] 1.025 (0.001-1.035) 03/28/17 13:38 Urine Protein 10mg/dl (trace) (NEG - TRACE) 03/28/17 13:38 Urine Ketones 5mg/dl (NEGATIVE) A 03/28/17 13:38 Urine Blood Negative (NEGATIVE) 03/28/17 13:38 Urine Nitrate Negative (NEGATIVE) 03/28/17 13:38 Urine Bilirubin Negative (NEGATIVE) 03/28/17 13:38 Urine Urobilinogen Normal (NEG-1mg/dL) 03/28/17 13:38 Ur Leukocyte Esterase Negative (NEGATIVE) 03/28/17 13:38 Urine RBC None seen (0-5/hpf) 03/28/17 13:38 Urine WBC 0-4/hpf (0-4/hpf) 03/28/17 13:38 Ur Squamous Epith Cells 0-5/hpf (<= 15/hpf) 03/28/17 13:38 Calcium Oxalate Crystal Few (Occasional) 03/28/17 13:38 Urine Bacteria None seen (<10/hpf) 03/28/17 13:38 Urine Mucus Up to 25%/lpf (Up to 25%) 03/28/17 13:38 Urine Glucose Normal (NEGATIVE) 03/28/17 13:38 Assessment and Plan - Date of Encounter Date of Encounter: 04/12/17 (1) Chest pain Problem details: prolonged CP in absence of ECG changes, abnl trop or wall motion abnl on echo. Doubt ischemic CP. exam benign. Status: Chronic Current Visit: Yes (2) Atrial fibrillation Status: Chronic Current Visit: Yes - Time Spent With Patient Total time spent with greater than 50% in coordination of care (as documented) at patient's floor/unit and/or counseling patient: 16-24 minutes (noncardiac CP) Estimated anticipated discharge: plan for d/c 04/10 (1) Chest pain Qualifiers: Chest pain type: other chest pain Qualified Code(s): R07.89 - Other chest pain; R07.8 - Other chest pain (2) Atrial fibrillation Qualifiers: Atrial fibrillation type: persistent
[2017-04-12 11:57] VITALS: RESP 16; O2SAT 93
[2017-04-12] MEDS: FERROUS SULFATE 325 MG TABLET PO SCH (12:27)
--- NOTE | 2017-04-12 12:32 | PROGRESS NOTE: IM SOAP ---
IM: PN Subjective Cardiovascular: other (described as a "hole in his chest" that radiates straight to thoracic back (different from LBP), 3/10 in intensity, no SOB/ diaphoresis, N/V; not pleuritic; no pyrosis) Respiratory: cough (productive with clear phlegm, improving) Gastrointestinal: no abdominal pain Musculoskeletal: pain (low back, positional, improving) IM: PN Objective Exam - I&O/Vital Signs I&O: Intake & Output 04/11/17 04/12/17 04/12/17 21:59 05:59 13:59 Intake Total 480 245 Output Total 450 150 Balance 30 95 Weight 62 kg Intake: Oral 480 245 Output: Urine 450 150 Other: Urine Appearance Clear Clear Urine Color Straw Straw Voiding Method Toilet Toilet Toilet # Voids 2 Vital Signs: Last Vital Signs Temp 36.6 C 04/12/17 06:27 Pulse 46 L 04/12/17 06:27 Resp 16 04/12/17 09:00 BP 138/66 04/12/17 06:27 Pulse Ox 93 04/12/17 09:00 Oxygen Flow Rate 2 Oxygen Delivery Method Room Air - Respiratory Respiratory exam: Present: clear. Absent: rales - Cardiovascular Cardiovascular exam: Present: irregular rhythm, S1, S2. Absent: JVD, systolic murmur, other (chest wall nontender to palpation and compression) - GI/Abdominal GI/Abdominal exam: Present: soft. Absent: tenderness - Extremities Exam Extremities exam: Absent: Gladys's Sign, edema - Back Exam Back exam: Present: other (Able to reproduce mid thoracic back pain with rotation of chest wall. LBP less painful with this rotation than previously.). Absent: paraspinal tenderness, vertebral tenderness - Lab Labs: Laboratory Last Values WBC 9.4 X 10^3uL (3.9-10.7) 04/11/17 12:00 RBC 4.51 X 10^6uL (4.20-6.10) 04/11/17 12:00 Hgb 14.5 g/dL (14.0-18.0) 04/11/17 12:00 Hct 42.5 % (42.0-54.0) 04/11/17 12:00 MCV 94.3 fL (80.0-100.0) 04/11/17 12:00 MCH 32.2 pg (29.0-35.0) 04/11/17 12:00 MCHC 34.1 g/dL (32.0-36.0) 04/11/17 12:00 RDW 12.0 % (11.5-14.5) 04/11/17 12:00 Plt Count 238 X 10^3uL (130-440) 04/11/17 12:00 MPV 8.6 fL (7.4-10.4) 04/11/17 12:00 Total Counted 100 04/11/17 12:00 Neutrophils % 70.4 % (54.0-75.0) 04/10/17 09:05 Neutrophils % (Manual) 77 % (54.0-75.0) H 04/11/17 12:00 Band Neuts % (Manual) 0 % (0.0-1.0) 03/31/17 10:40 Lymphocytes % 20.7 % (20.0-40.0) 04/10/17 09:05 Lymphocytes % (Manual) 18 % (20.0-40.0) L 04/11/17 12:00 Monocytes % (Manual) 3 % (2.0-10.0) 04/11/17 12:00 Eosinophils % 2.3 % (0.0-6.0) 04/10/17 09:05 Eosinophils % (Manual) 2 % (0.0-6.0) 04/11/17 12:00 Basophils % 0.6 % (0.0-2.0) 04/10/17 09:05 Neutrophils # 4.0 X 10^3uL (2.6-6.7) 04/10/17 09:05 Lymphocytes # 1.1 X 10^3uL (0.8-3.8) 04/10/17 09:05 Monocytes 6.0 % (2.0-10.0) 04/10/17 09:05 Monocytes # 0.3 X 10^3uL (0.2-1.0) 04/10/17 09:05 Eosinophils # 0.1 X 10^3uL (0.0-0.4) 04/10/17 09:05 Basophils # 0.0 X 10^3uL (0.0-0.1) 04/10/17 09:05 Platelet Estimate Adequate 04/11/17 12:00 D-Dimer 552 ng/mL H* 04/11/17 12:30 Sodium 139 mmol/L (137-145) 04/11/17 12:00 Potassium 4.2 mmol/L (3.5-5.1) 04/11/17 12:00 Chloride 102 mmol/L (98-107) 04/11/17 12:00 Carbon Dioxide 27 mmol/L (22-30) 04/11/17 12:00 BUN 17 mg/dL (9-20) 04/11/17 12:00 Creatinine 0.9 mg/dL (0.7-1.3) 04/11/17 12:00 GFR Calculation Not Reportable 04/11/17 12:00 Glucose 115 mg/dL (70-100) H 04/11/17 12:00 Calcium 9.3 mg/dL (8.4-10.2) 04/11/17 12:00 Magnesium 2.1 mg/dL (1.6-2.3) 04/10/17 09:05 Total Bilirubin 2.1 mg/dL (0.2-1.3) H D 04/10/17 09:05 AST 23 U/L (17-59) 04/10/17 09:05 ALT 25 U/L (21-72) 04/10/17 09:05 Alkaline Phosphatase 78 U/L (38-126) 04/10/17 09:05 Creatine Kinase 23 U/L (55-170) L 04/12/17 06:15 CK-MB (CK-2) 0.74 ng/mL (0.00-2.37) 04/12/17 06:15 Troponin I < 0.012 ng/mL (0.00-0.034) 04/12/17 06:15 Total Protein 7.8 g/dL (6.3-8.2) 04/10/17 09:05 Albumin 4.0 g/dL (3.5-5.0) 04/10/17 09:05 Albumin/Globulin Ratio 1.1 04/10/17 09:05 Urine Color Dark yellow A 03/28/17 13:38 Urine Appearance Slightly cloudy 03/28/17 13:38 Urine pH 5.5 (5-7) 03/28/17 13:38 Ur Specific [place] 1.025 (0.001-1.035) 03/28/17 13:38 Urine Protein 10mg/dl (trace) (NEG - TRACE) 03/28/17 13:38 Urine Ketones 5mg/dl (NEGATIVE) A 03/28/17 13:38 Urine Blood Negative (NEGATIVE) 03/28/17 13:38 Urine Nitrate Negative (NEGATIVE) 03/28/17 13:38 Urine Bilirubin Negative (NEGATIVE) 03/28/17 13:38 Urine Urobilinogen Normal (NEG-1mg/dL) 03/28/17 13:38 Ur Leukocyte Esterase Negative (NEGATIVE) 03/28/17 13:38 Urine RBC None seen (0-5/hpf) 03/28/17 13:38 Urine WBC 0-4/hpf (0-4/hpf) 03/28/17 13:38 Ur Squamous Epith Cells 0-5/hpf (<= 15/hpf) 03/28/17 13:38 Calcium Oxalate Crystal Few (Occasional) 03/28/17 13:38 Urine Bacteria None seen (<10/hpf) 03/28/17 13:38 Urine Mucus Up to 25%/lpf (Up to 25%) 03/28/17 13:38 Urine Glucose Normal (NEGATIVE) 03/28/17 13:38 Assessment and Plan - Date of Encounter Date of Encounter: 04/12/17 (1) Fall Status: Resolved Current Visit: No (2) Intractable pain Status: Acute Current Visit: No (3) Low back pain Status: Acute Assessment and plan: PT/OT tramadol, lidocaine patch D/C home to [facility] 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 Currently stable and can hold off. Current Visit: No (5) Atrial fibrillation Status: Chronic Assessment and plan: ASA To be scheduled for Watchman procedure in future. Current Visit: Yes (6) Coronary artery disease Status: Chronic Current Visit: No (7) HTN (hypertension) Status: Chronic Current Visit: No (8) Hyperlipidemia Status: Chronic Current Visit: No (9) Carotid stenosis Status: Chronic Assessment and plan: Post angioplasty and stent Current Visit: No (10) Weakness Status: Acute Assessment and plan: PT/OT Improved sufficient to return home. At increased risk for rehospitalization for related reasons. Current Visit: No (11) Impacted cerumen of both ears Status: Acute Current Visit: No (12) Acute bronchitis Status: Acute Assessment and plan: CXR and labs negative. Sputum MRSA Levaquin Mucinex 1200mg po bid. Feeling some better today Current Visit: Yes (13) Chest pain Problem details: prolonged CP in absence of ECG changes, abnl trop or wall motion abnl on echo. Doubt ischemic CP. exam benign. Status: Acute Assessment and plan: SD ruled out Per Dr Jara appears to be noncardiac. No pulm, GI, or musculoskeletal symptoms. However, somewhat positional on exam. Pt will monitor and RTC/ER if worsen. D/C Home Current Visit: Yes - Time Spent With Patient Total time spent with greater than 50% in coordination of care (as documented) at patient's floor/unit and/or counseling patient: Estimated anticipated discharge: plan for d/c 04/10 (5) Atrial fibrillation Qualifiers: Atrial fibrillation type: persistent (13) Chest pain Qualifiers: Chest pain type: other chest pain Qualified Code(s): R07.89 - Other chest pain; R07.8 - Other chest pain
--- NOTE | 2017-04-13 09:13 | DISCHARGE SUMMARY ---
DATE OF ADMISSION: 03/28/17 DATE OF DISCHARGE: 04/12/17 ATTENDING PHYSICIAN: Carlos Alberto Guerra MD CONSULTATION: Seed [employer] Operator Dr. Chinedu Jara, Seed Core Operator Dr. Oscar Miner, Seed Core Operator Dr. Nadia Hanson. PROCEDURE: Echocardiogram. DIAGNOSES 1. Status post fall. 2. Intractable pain with low back pain secondary #1. 3. Low back pain. 4. Profound bradycardia with heart rate 37-49 range despite stopping Metoprolol , rule out sick sinus syndrome. 5. Atrial fibrillation, currently on aspirin, not a candidate for Warfarin due to fall risk. Will need a Watchman closure procedure in the future. 6. Coronary artery disease. 7. Hypertension. 8. Hyperlipidemia. 9. Chest pain, myocardial infarction ruled out. 10. Bilateral cerumen impaction, severe, improved. HISTORY OF PRESENT ILLNESS: This is an 87-year-old male who suffered some falls 6 months ago, and again about 3 months ago. The morning of admission, 03/24/17, the patient had another fall, resulting in him sitting down hard. No head or neck injury. Apparently he was scheduled for placement of a Watchman closure procedure the day of admission. He was n.p.o. since about 12 noon the day prior. He has poor p.o. fluid intake normally and only eats lunch, no breakfast or dinner normally. Apparently the morning of admission, he felt quite dizzy and lightheaded and had an unwitnessed fall. He was complaining of low back pain. Lumbar spine CT scan showed an old compression fracture at T12, but no obvious new acute compression fracture or other injuries. Please see previously dictated history and physical for his inpatient stay for further details. SWING BED: Patient was admitted to swing bed for additional physical therapy, occupational therapy and rehabilitation. Apparently, with mild movement, he had exquisite pain in his low back. Over time his pain came under better control with a combination of physical therapy, occupational therapy, Lidocaine patch, Tramadol and Flexeril. 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 In addition, he had profound bradycardia with heart rates in the 37-49 range, despite stopping Metoprolol. The situation was discussed with Dr. Miner, and he is considering possible placement of a pacemaker at the time of his Watchman procedure for atrial fibrillation. During his stay, he was aggressively treated for bilateral cerumen impaction. Also developed acute bronchitis for which antibiotics are warranted during his stay. Patient was to be discharged yesterday when he developed acute onset of substernal chest pain, 10/10 in intensity, radiating straight to his thoracic back. No numbness, shortness of breath or diaphoresis, pyrosis or pleurisy. Patient was watched overnight and he was ruled out for myocardial infarction based on serial EKGs and cardiac enzymes. Echocardiogram was preformed and consultation was provided by Seed Core Operator Dr. Chinedu Jara. At this time, it is believed that the chest discomfort was non-cardiac in origin. Again, does not appear to have a cardiac, pulmonary or GI etiology for symptoms. He did not respond to a GI cocktail and chest x-ray did not show any pulmonary process. It did seem today that with extreme rotation, he was able to reproduce the mid- thoracic back discomfort, but we were unable to reproduce the chest discomfort, which persists at a 3/10 intensity level at this time. He continues to cough up some yellow phlegm, and we will give him another round of antibiotics at the time of discharge. DISCHARGE INSTRUCTIONS: Patient may participate in activities as able. He is able to ambulate with his walker t.i.d. and be up in a chair t.i.d. He is on a cardiac diet. He will follow up with Dr. Miner on 04/15/[address] Guerra on 04/18/17. He will be followed by Home Health Care nursing and physical therapy. 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 DISCHARGE MEDICATIONS Ceftin 500 mg p.o. b.i.d. x7 days. Aspirin 81 mg p.o. daily. Atorvastatin 20 mg p.o. q.h.s. Calcium 600 mg with vitamin D 400 International Units p.o. b.i.d. Cyclobenzaprine 5 mg p.o. q.8 hours for low back pain. Ferrous sulfate 325 mg p.o. daily. Toviaz 8 mg p.o. daily. Finasteride 5 mg p.o. q.h.s. Levothyroxine 50 mcg p.o. daily. Lidoderm 5% patch to be applied in the morning or removed at night for low back pain. Lisinopril 20 mg p.o. daily. Tamsulosin 0.4 mg p.o. q.h.s. Tramadol 50 mg p.o. q.6 hours PRN pain. Copies to: Dr. Kristofer ARROYO
== END 2017-04-12 09:31 | disposition home or self-care (01) | DRG 552 ==
LOC: IN 13:37
PROVIDERS: ADMIT Family Medicine; ATTEND Family Medicine
DX: M54.5 Low back pain (principal); R00.1 Bradycardia, unspecified; I48.2 Chronic atrial fibrillation; I25.10 Atherosclerotic heart disease of native coronary artery without angina pectoris; I10 Essential (primary) hypertension; E78.5 Hyperlipidemia, unspecified; H61.23 Impacted cerumen, bilateral; N40.1 Benign prostatic hyperplasia with lower urinary tract symptoms; R33.8 Other retention of urine; M81.0 Age-related osteoporosis without current pathological fracture; E03.9 Hypothyroidism, unspecified; Z95.5 Presence of coronary angioplasty implant and graft; Z79.899 Other long term (current) drug therapy
CPT/HCPCS: 36415; 71010; 71020; 80048; 80053; 81001; 82550; 82553; 83735; 84484; 85007; 85025; 85027; 85379; 87040; 87070; 87077; 87186; 87205; 93308; 94668; 94669; J1650; J2270